=== PATIENT | male | born 2000 | race Caucasian/White ===

== ENCOUNTER 2024-11-25 18:35 | Emergency (ER) | payer SELFPAY ==
[2024-11-25 18:36] VITALS: BP 114/79; PULSE 103; RESP 24; TEMP 37; O2SAT 96
[2024-11-25 19:23] VITALS: PULSE 91; RESP 22; O2SAT 93
[2024-11-25 19:25] VITALS: PULSE 96; RESP 20; TEMP 36.6; O2SAT 96
--- NOTE | 2024-11-25 20:08 | W.ED.GENAD ---
Discharge Plan Disposition Patient Disposition: Home Condition: Good Discharge Details Clinical Impression: Asthma exacerbation Primary Care Provider: Umair Washington ED Provider: Supriya Sargent Home Meds and New Rx's Prescriptions: New prednisone 50 mg tablet 50 mg PO DAILY Qty: 5 0RF prednisone 50 mg tablet 50 mg PO DAILY Qty: 5 0RF prednisone 50 mg tablet 50 mg PO DAILY Qty: 5 0RF Continued albuterol 90 mcg/actuation aerosol 90 mcg inhalation .2 puff PRN fluticasone propionate [Flovent Diskus] 250 mcg/actuation blister with device 1 inh inhalation BID Discharge Instructions Instructions: Asthma, Adult ED Additional Instructions: Use your flovent and albuterol as prescribed. Prednisone once a day for the next 5 days. Call your primary care doctor in the morning to schedule an appointment for within the next 72 hours to followup on your visit here. Return to the emergency department for new or worsening symptoms including if your breathing worsens, you feel lightheaded, have chest pain, or any other concerns. Referrals: Umair Washington [Primary Care Provider] - [facility] General Mode of arrival: ambulatory. Date/Time Provider Initiated Documentation: 11/25/24 19:16. Limitations to Documentation: no limitations. Information obtained by: patient. HPI Narrative: 24yo M with hx asthma presenting for wheezing. Out of home albuterol and flovent. Recently moved in with family to help care for them, they have cats and since then he has noticed increase in need for albuterol. No fevers, chills, rash, nausea, vomiting, chest pain, palpitations, or other concerns. Related Data Home Medications ?Medication ?Instructions ?Recorded ?Confirmed albuterol 90 mcg/actuation aerosol 90 mcg inhalation .2 puff PRN 11/25/24 11/25/24 inhaler fluticasone propionate 250 1 inh inhalation BID 11/25/24 11/25/24 mcg/actuation blister powder for inhalation (Flovent Diskus) prednisone 50 mg tablet 50 mg PO DAILY #5 tabs 11/25/24 prednisone 50 mg tablet 50 mg PO DAILY #5 tabs 11/25/24 prednisone 50 mg tablet 50 mg PO DAILY #5 tabs 11/25/24 Previous Rx's ?Medication ?Instructions ?Recorded prednisone 50 mg tablet 50 mg PO DAILY #5 tabs 11/25/24 prednisone 50 mg tablet 50 mg PO DAILY #5 tabs 11/25/24 prednisone 50 mg tablet 50 mg PO DAILY #5 tabs 11/25/24 General Stated Complaint: RespSymp LINDY: 3 Review of Systems Narrative: see HPI Exam Narrative Exam Narrative: General: Alert, well appearing, well nourished, in no acute distress. Head: Normocephalic, atraumatic Neck: Trachea midline, ?Neck supple. Cardiac: ?RRR, no murmurs appreciated Resp: Diffuse expiratory wheeze. Good air movement. No increased work of breathing. Extremities: ?No deformities.? No peripheral edema. Neurologic: GCS 15. ? Moves all extremities freely against gravity Course Vital Signs Vital signs: Vital Signs Temperature 37.0 C 11/25/24 18:36 Pulse 103 H 11/25/24 18:36 Respiratory Rate 24 11/25/24 18:36 Blood Pressure 114/79 11/25/24 18:36 Pulse Oximetry 96 11/25/24 18:36 Temperature 36.6 C 11/25/24 19:25 Temperature Source Oral 11/25/24 18:36 Pulse 96 H 11/25/24 19:25 Respiratory Rate 20 11/25/24 19:25 Respiratory Effort Short of Breath 11/25/24 19:25 Respiratory Depth Normal 11/25/24 19:25 Blood Pressure 114/79 11/25/24 18:36 Blood Pressure Position Sitting 11/25/24 18:36 Pulse Oximetry 96 11/25/24 19:25 Oxygen Delivery Method Room Air 11/25/24 19:23 Oxygen Flow Rate 0 11/25/24 19:23 Pain Level 0 11/25/24 19:25 Medical Decision Making 24yo M with hx asthma presenting for wheezing, requests refills of meds as he is out of home albuterol and flovent. Slighty tachcyardiac on arrival after ambulating into triage; vital signs otherwise reassuring. No infectious symptoms. Systemically well. Well appearing on exam, no respiratory distress; does have expiratory wheeze. Not septic, not concerned for pneumonia; would not get labs or CXR. Given albuterol and mometasol here as well as dose of prednisone. On reassessment lungs CTAB, patient reports feeling better. He declines respiratory viral swab. Will discharge on 5 days course of prednisone; advised close PCP followup. Discharge instructions and return precautions were reviewed with patient who verbalized understanding. All questions were answered and he is in full agreement with the plan. Quality:SDOH Health Related Social Needs: No Data to Display PFSH All Active Problems (Updated 11/25/24 @ 20:32 by Supriya Sargent MD) Asthma exacerbation (Acute) Social History Smoking/Tobacco Use Status: Current every day Tobacco Type: cigarettes Smoking risk assessment performed?: Yes Alcohol Intake: never Substance use type: does not use
[2024-11-25] MEDS: Inhaler, Assist Device 1 EACH MC (20:34)
[2024-11-25] MEDS: Albuterol HFA 8 GM 60 PUFF INH IH (20:34)
[2024-11-25] MEDS: predniSONE 20 MG TAB 60 MG PO (20:35)
[2024-11-25] MEDS: Mometasone 220 MCG 14 DOSE INHALER 2 PUFF IH (21:08)
== END 2024-11-25 21:14 | disposition home or self-care (01) ==
PROVIDERS: Emergency Provider Student in an Organized Health Care Education/Training Program; PCP Hospitalist
DX: J45.901 Unspecified asthma with (acute) exacerbation (principal)
CPT/HCPCS: 99283; J7512

== ENCOUNTER 2025-02-09 19:36 | Emergency (ER) | payer OTHER, SELFPAY ==
[2025-02-09] VITALS (12 sets, daily range): BP systolic 100–105; BP diastolic 75–85; PULSE 86–133; RESP 16–18; TEMP 36.9; O2SAT 97–99
--- NOTE | 2025-02-09 19:30 | RT.EKG_ITS ---
APPROVED REPORT Exam: Resting ECG Reason for Exam: palpatations Patient Location: E HR:95 bpm ECG Measurements Heart Rate 95 AXIS TX 156 P 68 QRSd 100 QRS 66 QT 339 T 57 QTc 428 Conclusion Sinus rhythm 95 normal axis no stemi
[2025-02-09 20:59] LABS: Abs Immature Grans 0.02 10^3/uL (0.0-0.06); Absolute Basophil Count 0.07 10^3/uL (0.0-0.2); Absolute Eosinophil Count 1.08 10^3/uL (0.0-0.7); Absolute Lymphocyte Count 3.48 10^3/uL (1.2-3.4); Absolute Monocyte Count 0.89 10^3/uL (0.1-0.8); Absolute Neutrophil Count 6.63 10^3/uL (1.2-6.7); Basophils % 0.6 %; Eosinophils % 8.9 %; HCT 45.9 % (40.0-50.0); HGB 15.4 g/dL (13.5-17.5); Immature Grans % 0.2 %; Lymphocytes % 28.6 %; MCH 29.4 pg (27.0-33.0); MCHC 33.6 % (32.0-36.0); MCV 88 fL (80-95); MPV 10.1 fL (8.0-11.0); Monocytes % 7.3 %; Neutrophils % 54.4 %; Platelet Count 317 10^3/uL (130-400); RBC 5.24 10^6/uL (4.36-5.78); RDW 12.5 % (11.8-14.1); RDW-SD 39.8 fL; WBC 12.18 10^3/uL (4.4-10.8)
--- NOTE | 2025-02-09 21:10 | DI.RAD_ITS ---
Exam(s) XR CHEST 2V PA LATERAL EXAM: XR CHEST 2V PA LATERAL CLINICAL HISTORY: CHEST PAIN TECHNIQUE: 2D digital imaging was performed. Two views. COMPARISON: No exams were available for comparison FINDINGS: HEART: Normal size. Aorta: Not dilated. PULMONARY VASCULATURE: Normal. MEDIASTINUM: Unremarkable. LUNGS: Hyperinflated but clear. PLEURAL SPACE: No pleural effusion or pneumothorax. BONE:Unremarkable for age. SOFT TISSUES: Unremarkable. IMPRESSION: No acute abnormality. DATA REPOSITORY: RADIATION DOSE DELIVERED:
[2025-02-09 21:23] LABS: ALT 68 U/L (16-63); AST 46 U/L (15-37); Albumin 4.7 g/dL (3.4-5.0); Alkaline Phosphatase 108 U/L (46-116); Anion Gap 12.2 mmol/L (3-11); BUN 10 mg/dL (7-18); Bilirubin, Total 0.4 mg/dL (0.2-1.0); CO2 27.8 mmol/L (21.0-32.0); CREATININE 0.7 mg/dL (0.70-1.30); Calcium 10.2 mg/dL (8.5-10.1); Chloride 104 mmol/L (98-107); Estimated GFR 130.32 (mL/min/1.73m2); Glucose 113 mg/dL (74-106); Magnesium 1.9 mg/dL (1.8-2.4); NT-proBNP 30 pg/mL (<300); Potassium 3.4 mmol/L (3.5-5.1); Sodium 144 mmol/L (136-145); TSH (W/Ref FT4) 2.17 uIU/mL (0.36-3.74); Total Protein 8.8 g/dL (6.4-8.2); Troponin I < 4 ng/L (<or=76)
--- NOTE | 2025-02-09 21:54 | DI.VRAD_ITS ---
PROCEDURE INFORMATION: Exam: XR Chest Exam date and time: 02/09/2025 9:07 PM Age: 24 years old Clinical indication: Other: Chest pain TECHNIQUE: Imaging protocol: Radiologic exam of the chest. Views: 2 views. COMPARISON: No relevant prior studies available. FINDINGS: Lungs: The lungs are hyperaerated and hyperlucent. There is some flattening of the diaphragms and increased retrosternal airspace. Next lines Pleural spaces: Unremarkable. No pleural effusion. No pneumothorax. Heart/Mediastinum: Unremarkable. No cardiomegaly. Bones/joints: Unremarkable. IMPRESSION: COPD. No evidence for acute abnormality. Dictated and Authenticated by: Mariam Soler MD. Orderin Uma Obrien MD
--- NOTE | 2025-02-09 22:19 | ED.GENADUL_ITS ---
Discharge Plan Disposition Patient Disposition: Home Discharge Details Clinical Impression: Chest pain Primary Care Provider: Umair Washington ED Provider: Erika Eaton Home Meds and New Rx's Prescriptions: New prednisone 20 mg tablet 40 mg PO DAILY 4 Days Qty: 8 0RF No Action albuterol 90 mcg/actuation aerosol 90 mcg inhalation .2 puff PRN fluticasone propionate [Flovent Diskus] 250 mcg/actuation blister with device 1 inh inhalation BID Discharge Instructions Instructions: Chest Pain, Adult ED Additional Instructions: Your EKG and chest x-ray are unremarkable. Your blood work including your heart enzymes are not consistent with your chest pain being caused by your heart. Thyroid function testing is also normal. Prescription for steroid medication has been sent to the pharmacy. Please start this tomorrow to take for the next few days to help with your breathing symptoms. For your chest pain, start Motrin 600 mg every 6-8 hours. Please follow-up with your primary care provider as you should not be using your albuterol inhaler this often and you likely need adjustments in your controller medications. Please return to the emergency department with any other concerns. HPI General Date/Time Provider Initiated Documentation: 02/09/25 19:50 . Limitations to Documentation: no limitations . Information obtained by: patient . HPI Narrative: 24-year-old gentleman with past medical history of asthma presents for evaluation of chest pain. He reports that he lives with his girlfriend who has several cats and he has an allergy to cats and because of that he coughs quite a bit. He does not use anything other than the albuterol inhaler. He states he has been going through an inhaler a week. He reports this evening he developed some right-sided chest pain that was constant and sharp. No significant worsening shortness of breath, no fever or chills. Related Data Home Medications ?Medication ?Instructions ?Recorded ?Confirmed albuterol 90 mcg/actuation aerosol 90 mcg inhalation .2 puff PRN 11/25/24 02/09/25 inhaler fluticasone propionate 250 1 inh inhalation BID 11/25/24 02/09/25 mcg/actuation blister powder for inhalation (Flovent Diskus) prednisone 20 mg tablet 40 mg (2 x 20 mg) PO DAILY 4 days 02/09/25 #8 tabs Previous Rx's ?Medication ?Instructions ?Recorded prednisone 20 mg tablet 40 mg (2 x 20 mg) PO DAILY 4 days 02/09/25 #8 tabs Allergies Allergy/AdvReac Type Severity Reaction Status Date / Time No Known Allergies Allergy Verified 02/09/25 19:44 General Stated Complaint: Palpitatns LINDY: 3 Exam Narrative Exam Narrative: Review of Systems: All systems reviewed & are unremarkable except as noted in HPI and below Well-developed, no acute distress NCAT RRR, no murmur Unlabored respiratory effort, clear bilaterally Nondistended abdomen Extremities w/o edema Course Vital Signs Vital signs: Vital Signs Temperature 36.9 C 02/09/25 19:39 Pulse 93 H 02/09/25 19:39 Respiratory Rate 18 02/09/25 19:39 Blood Pressure 105/85 02/09/25 19:39 Pulse Oximetry 99 02/09/25 19:39 Temperature 36.9 C 02/09/25 19:39 Pulse 90 02/09/25 21:50 Pulse 106 H 02/09/25 21:20 Respiratory Rate 16 02/09/25 21:50 Blood Pressure 100/75 02/09/25 21:50 Pulse Oximetry 97 02/09/25 21:50 Oxygen Delivery Method Room Air 02/09/25 19:39 Oxygen Flow Rate 0 02/09/25 19:39 Pain Level 4 02/09/25 19:39 Lab/Test Results Lab/Test Results: Laboratory Tests Range/Units 02/09/25 20:50 WBC (4.4-10.8) 10^3/uL 12.18 H RBC (4.36-5.78) 10^6/uL 5.24 Hgb (13.5-17.5) g/dL 15.4 Hct (40.0-50.0) % 45.9 MCV (80-95) fL 88 MCH (27.0-33.0) pg 29.4 MCHC (32.0-36.0) % 33.6 RDW (11.8-14.1) % 12.5 Plt Count (130-400) 10^3/uL 317 MPV (8.0-11.0) fL 10.1 Immature Gran % % 0.2 Neutrophils % % 54.4 Lymphocytes % % 28.6 Monocytes % % 7.3 Eosinophils % % 8.9 Basophils % % 0.6 Nucleated RBC % (0.0-0.3) % 0.0 Absolute Neutrophils (1.2-6.7) 10^3/uL 6.63 Absolute Lymphocytes (1.2-3.4) 10^3/uL 3.48 H Absolute Monocytes (0.1-0.8) 10^3/uL 0.89 H Absolute Eosinophils (0.0-0.7) 10^3/uL 1.08 H Absolute Basophils (0.0-0.2) 10^3/uL 0.07 Sodium (136-145) mmol/L 144 Potassium (3.5-5.1) mmol/L 3.4 L Chloride (98-107) mmol/L 104 Carbon Dioxide (21.0-32.0) mmol/L 27.8 Anion Gap (3-11) mmol/L 12.2 H BUN (7-18) mg/dL 10 Creatinine (0.70-1.30) mg/dL 0.7 Est GFR (CKD-EPI 2020) (mL/min/1.73m2) 130.32 Glucose (74-106) mg/dL 113 H Calcium (8.5-10.1) mg/dL 10.2 H Magnesium (1.8-2.4) mg/dL 1.9 Total Bilirubin (0.2-1.0) mg/dL 0.4 AST (15-37) U/L 46 H ALT (16-63) U/L 68 H Alkaline Phosphatase (46-116) U/L 108 Troponin I (<or=76) ng/L < 4 NT-Pro-B Natriuret Pep (<300) pg/mL 30 Total Protein (6.4-8.2) g/dL 8.8 H Albumin (3.4-5.0) g/dL 4.7 TSH (0.36-3.74) uIU/mL 2.17 Medical Decision Making Emergent evaluation of chest pain. Patient has significant asthma history and sounds poorly controlled secondary to chronic environmental exposures. The patient is not wheezing at this time and has no signs of respiratory distress. EKG is unremarkable for any acute etiology or ischemic etiology. I doubt that he has ACS causing this chest pain. Other differentials include any pneumothorax, pneumonia. No focal consolidation, normal heart size, no pulmonary edema or pleural effusion did not reveal any acute etiology or consolidation. Lab work is unremarkable for any significant derangement. Troponin is undetectable. BNP is not elevated. I doubt cardiac etiology of the symptoms. Patient discharged with steroids for short course and recommended follow-up with his PCP as he needs significant change in his asthma controller plan. Quality:[facility] Health Related Social Needs: No Data to Display PFSH All Active Problems (Updated 02/09/25 @ 21:43 by Erika Eaton MD) Chest pain (Acute) Social History Smoking/Tobacco Use Status: Current every day Tobacco Type: cigarettes Smoking risk assessment performed?: Yes Alcohol Intake: never Substance use type: does not use
== END 2025-02-09 22:11 | disposition home or self-care (01) ==
PROVIDERS: Emergency Provider Emergency Medicine; PCP Hospitalist
DX: R07.9 Chest pain, unspecified (principal); Z87.09 Personal history of other diseases of the respiratory system
CPT/HCPCS: 99284 ×2; 36415; 80053; 93005; 71046; 83735; 83880; 84443; 84484; 85025; 93010

== ENCOUNTER 2025-03-02 | Emergency (ER) | payer OTHER, SELFPAY ==
[2025-03-01 23:52] VITALS: BP 136/99; PULSE 104; RESP 18; O2SAT 99
[2025-03-02] VITALS (57 sets, daily range): PULSE 60–106; RESP 11–28; O2SAT 97–100
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
[2025-03-02] MEDS: ACETAMINOPHEN 1,000 MG/100 ML BTL 400 MG IVPB (00:33)
[2025-03-02] MEDS: Diph,Pertuss(Acell),Tet Vac/Pf 0.5 ML SYR IM (00:34)
[2025-03-02] MEDS: Normal Saline 1,000 ML 1000 ML IV (00:34)
[2025-03-02 00:40] LABS: Abs Immature Grans 0.04 10^3/uL (0.0-0.06); Absolute Basophil Count 0.05 10^3/uL (0.0-0.2); Absolute Eosinophil Count 0.72 10^3/uL (0.0-0.7); Absolute Lymphocyte Count 2.32 10^3/uL (1.2-3.4); Absolute Monocyte Count 1.04 10^3/uL (0.1-0.8); Absolute Neutrophil Count 9.49 10^3/uL (1.2-6.7); Basophils % 0.4 %; Eosinophils % 5.3 %; HCT 38.3 % (40.0-50.0); HGB 12.8 g/dL (13.5-17.5); Immature Grans % 0.3 %; MCH 29.6 pg (27.0-33.0); MCHC 33.4 % (32.0-36.0); MCV 89 fL (80-95); MPV 9.9 fL (8.0-11.0); Monocytes % 7.6 %; Neutrophils % 69.4 %; Platelet Count 247 10^3/uL (130-400); RBC 4.33 10^6/uL (4.36-5.78); RDW 13.2 % (11.8-14.1); WBC 13.67 10^3/uL (4.4-10.8)
[2025-03-02 01:00] LABS: ALT 88 U/L (16-63); AST 68 U/L (15-37); Albumin 4.2 g/dL (3.4-5.0); Alkaline Phosphatase 88 U/L (46-116); Anion Gap 6.6 mmol/L (3-11); BUN 17 mg/dL (7-18); Bilirubin, Total 0.4 mg/dL (0.2-1.0); CO2 27.4 mmol/L (21.0-32.0); CREATININE 0.6 mg/dL (0.70-1.30); Calcium 9.6 mg/dL (8.5-10.1); Chloride 107 mmol/L (98-107); Estimated GFR 136.53 (mL/min/1.73m2); Glucose 90 mg/dL (74-106); Potassium 4.1 mmol/L (3.5-5.1); Sodium 141 mmol/L (136-145); Total Protein 7.6 g/dL (6.4-8.2)
[2025-03-02 01:09] LABS: ETHANOL BLOOD < 3.0 mg/dL (<10)
[2025-03-02] MEDS: Normal Saline - Diluent 50 ML VIAL IJ (01:39)
[2025-03-02] MEDS: Omnipaque 350 MG/ML 100 ML BTL IJ (01:39)
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
[2025-03-02 02:06] LABS: *AMPHETAMINES SCREEN URINE Negative (Negative); *BARBITURATES SCREEN URINE Negative (Negative); *BENZODIAZEPINES SCREEN URINE Negative (Negative); Cannabinoids THC Negative (Negative); Cocaine Screen,Urine Positive (Negative); METHADONE URINE SCREEN Negative (Negative); OPIATES URINE SCREEN Negative (Negative)
[2025-03-02 02:07] LABS: Tricyclic Antidepressants Negative (Negative)
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
--- NOTE | 2025-03-02 07:02 | NUR.NOTE ---
d/c BP noted after review to be erroneous, MD Justin aware and wrote note accordingly, aware that this RN was in chart to delete erroneous BP as pt did not have a BP of 54/25 at time of d/c.
== END 2025-03-02 03:13 | disposition home or self-care (01) ==
PROVIDERS: Emergency Provider Student in an Organized Health Care Education/Training Program; PCP Hospitalist
DX: S01.111A Laceration without foreign body of right eyelid and periocular area, initial encounter (principal); S00.01XA Abrasion of scalp, initial encounter; S00.03XA Contusion of scalp, initial encounter; S00.83XA Contusion of other part of head, initial encounter; S20.213A Contusion of bilateral front wall of thorax, initial encounter; Q78.0 Osteogenesis imperfecta; F17.210 Nicotine dependence, cigarettes, uncomplicated; Y04.0XXA Assault by unarmed brawl or fight, initial encounter; Y93.89 Activity, other specified; Z23 Encounter for immunization
CPT/HCPCS: 12011; 36415; 36569; 74177; 80053; 80307; 90715; 99285; 70450; 70486; 71260; 72125; 80320; 85025; J0131; J3490

== ENCOUNTER 2025-03-30 15:21 | Emergency (ER) | payer OTHER, SELFPAY ==
[2025-03-30 15:25] VITALS: BP 95/67; PULSE 134; RESP 20; TEMP 37.2; O2SAT 96
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
[2025-03-30] MEDS: predniSONE 20 MG TAB 60 MG PO (15:43)
[2025-03-30] MEDS: Albuterol/Ipratropium 3 ML UPD VIAL UPD (15:43)
[2025-03-30] MEDS: Albuterol HFA 8 GM 60 PUFF INH IH (15:43)
[2025-03-30] MEDS: Mometasone 220 MCG 14 DOSE INHALER 2 PUFF IH (16:12)
[2025-03-30 16:16] VITALS: PULSE 127; RESP 18; O2SAT 99
== END 2025-03-30 16:17 | disposition home or self-care (01) ==
LOC: ER 16:17
PROVIDERS: Emergency Provider Emergency Medicine; PCP Hospitalist
DX: J45.901 Unspecified asthma with (acute) exacerbation (principal); F17.210 Nicotine dependence, cigarettes, uncomplicated
CPT/HCPCS: 94640; 99283; J7512; J7620

== ENCOUNTER 2025-04-24 09:56 | Emergency (ER) | payer OTHER, SELFPAY ==
[2025-04-24 10:07] VITALS: BP 112/73; PULSE 80; RESP 20; TEMP 36.7; O2SAT 97
--- NOTE | 2025-04-24 10:29 | W.ED.GENAD ---
Discharge Plan Disposition Patient Disposition: Home Discharge Details Clinical Impression: Encounter for medication refill Primary Care Provider: Umair Washington ED Provider: Saurav Paez Home Meds and New Rx's Prescriptions: Continued albuterol 90 mcg/actuation aerosol 90 mcg inhalation .2 puff PRN fluticasone propionate [Flovent Diskus] 250 mcg/actuation blister with device 1 inh inhalation BID Discharge Instructions Additional Instructions: You are seen in the emergency department for your medication refill. You received an asthma inhaler. Please use this as directed. Please return to the emergency department if you develop shortness of breath chest pain or any increased wheezing. Otherwise please follow-up with your primary care provider. Discharge Data Discharge Date/Time-TO BE ENTERED AT DEPARTURE: 04/24/25 10:49 HPI General Date/Time Provider Initiated Documentation: 04/24/25 10:29. HPI Narrative: MDM This is a quite well-appearing normothermic and not tachycardic 24-year-old male without tachypneic nor hypoxic but with broken inhaler at home and history of reactive airway disease requesting medication refill for which patient received medications prior to discharge with an empiric trial of expectant outpatient management. Given his normal reassuring lung exam I did not feel he required a chest x-ray as he was not having any fevers nor cough to suggest pneumonia. No wheezes nor shortness of breath at the moment to suggest benefit from nebulization treatment. Given no significant wheezes will defer steroid treatment at this point in time. Equal breath sounds so I not suspicious for pneumothorax. No pain out of proportion to suggest necrotizing soft tissue infection. In the absence of chest pain I was not suspicious for ACS. No history of heart failure nor leg swelling to suggest acute CHF. Patient is not pale nor tachycardic so I am not suspicious for symptomatic anemia so I do not feel he requires CBC. Patient does have a primary care provider. We discussed that he should return to the emergency department if he developed any shortness of breath that worsened or if he had any fevers or chills or if he had any other concerns. He will follow-up with his primary care provider. HPI The patient presents for medication refill. He has a history of asthma since childhood, which is primarily triggered by cats. His asthma attacks are severe, often disrupting his sleep at night or early in the morning. He reports no current symptoms such as fever, productive cough, or chest pain. He recently quit smoking. He had an incident where his emergency inhaler malfunctioned due to heat exposure, but he managed to find a replacement. Currently, his breathing is stable. Patient has never been hospitalized as an adult for asthma. He has never required intubation. He had a remote history of hospitalization for asthma during childhood. He has a primary care provider. Exam General: Well-appearing in no acute distress speaking in complete sentences. Head: Normocephalic, atraumatic. Eye: Extraocular eye movements intact. No conjunctival injection. No scleral icterus. Ear, nose, mouth, throat: Grossly normal inspection. Normal voice, handling secretions normally. Neck: Trachea midline. Cardiovascular: Well-perfused distal extremities. Regular rate and rhythm Respiratory: Nonlabored respiration. Clear equal breath sounds. No wheezes. No rhonchi. Gastrointestinal: Nondistended abdomen. Musculoskeletal: No edema. Moving all 4 extremities spontaneously. Skin: Normal for age and race, grossly normal temperature and turgor. No acute rash. Neurologic: Alert and appropriate, no apparent acute deficits. Psychiatric: Mood and manner are appropriate. Grooming and personal hygiene are appropriate. Related Data Home Medications ?Medication ?Instructions ?Recorded ?Confirmed albuterol 90 mcg/actuation aerosol 90 mcg inhalation .2 puff PRN 11/25/24 03/30/25 inhaler fluticasone propionate 250 1 inh inhalation BID 11/25/24 03/30/25 mcg/actuation blister powder for inhalation (Flovent Diskus) Allergies Allergy/AdvReac Type Severity Reaction Status Date / Time No Known Allergies Allergy Verified 03/30/25 15:29 General Stated Complaint: RespSymp LINDY: 4 Course Vital Signs Vital signs: Vital Signs Temperature 36.7 C 04/24/25 10:07 Pulse 80 04/24/25 10:07 Respiratory Rate 20 04/24/25 10:07 Blood Pressure 112/73 04/24/25 10:07 Pulse Oximetry 97 04/24/25 10:07 Temperature 36.7 C 04/24/25 10:07 Temperature Source Oral 04/24/25 10:07 Pulse 80 04/24/25 10:07 Respiratory Rate 20 04/24/25 10:07 Blood Pressure 112/73 04/24/25 10:07 Blood Pressure Position Sitting 04/24/25 10:07 Pulse Oximetry 97 04/24/25 10:07 Oxygen Delivery Method Room Air 04/24/25 10:07 Oxygen Flow Rate 0 04/24/25 10:07 Pain Level 0 04/24/25 10:07 PFS All Active Problems (Updated 04/24/25 @ 10:30 by Saurav Paez MD) Encounter for medication refill (Acute) Asthma exacerbation (Acute) Social History Smoking/Tobacco Use Status: Current every day Tobacco Type: e-cigarettes Smoking risk assessment performed?: Yes Alcohol Intake: current Alcohol Intake frequency: a few times a month Alcohol type: beer Drug use: Never Substance use type: does not use Do you feel safe at home: Yes Do you feel safe in your relationship?: Yes
[2025-04-24] MEDS: Albuterol HFA 8 GM 60 PUFF INH IH (10:39)
[2025-04-24] MEDS: Budesonide/Formoterol 160/4.5 6 GM 60 PUFF INH IH (10:39)
[2025-04-24 10:49] VITALS: BP 112/73; PULSE 80; RESP 20; TEMP 36.7; O2SAT 97
== END 2025-04-24 10:49 | disposition home or self-care (01) ==
PROVIDERS: Emergency Provider Emergency Medicine; PCP Hospitalist
DX: Z76.0 Encounter for issue of repeat prescription (principal); J45.909 Unspecified asthma, uncomplicated; F17.290 Nicotine dependence, other tobacco product, uncomplicated
CPT/HCPCS: 99282

== ENCOUNTER 2025-06-22 22:10 | Emergency (ER) | payer SELFPAY ==
[2025-06-22 22:18] VITALS: BP 140/100; PULSE 100; RESP 16; TEMP 36.1; O2SAT 100
[2025-06-22 22:26] VITALS: RESP 16
--- NOTE | 2025-06-22 22:37 | W.ED.GENAD ---
Discharge Plan Disposition Patient Disposition: Home Condition: Good Discharge Details Clinical Impression: Viral URI Primary Care Provider: Umair Washington ED Provider: Harshad Justin Home Meds and New Rx's Prescriptions: No Action albuterol 90 mcg/actuation aerosol 90 mcg inhalation .2 puff PRN fluticasone propionate [Flovent Diskus] 250 mcg/actuation blister with device 1 inh inhalation BID Discharge Instructions Instructions: Upper Respiratory Infection ED Additional Instructions: At this time you do appear mildly dehydrated. Please drink plenty of fluid, at least 10 to 12 cups of water or electrolyte solution per day. You likely have a viral upper respiratory infection. We will call you with the results of the test. Please return to work once your symptoms have resolved. If you notice any worsening of your symptoms, or any new symptoms such as vomiting, diarrhea, fever, chills, shortness of breath, chest pain, numbness, weakness, or fainting , please return immediately to the emergency department for reevaluation. Please follow up with your primary care provider as soon as possible for reassessment and reevaluation. As always, it was a pleasure participating in your medical care today. Stand Alone Forms: Work Release Referrals: Umair Washington [Primary Care Provider, Medicine] [facility] General Date/Time Provider Initiated Documentation: 06/22/25 22:14. HPI Narrative: This is a 24-year-old male with a past medical history of osteogenesis imperfecta type I, osteoporosis, asthma, occasional hypotension, who presents today for evaluation for a work note and upper respiratory infection symptoms. Patient states that his girlfriend came back from [place] about 4 5 days ago, the next day after her return he developed a runny nose, congestion, mild head pressure chills nausea and diminished appetite. Symptoms have been improving over the last few days, currently he feels mildly weak but otherwise feels well. He has been able to eat and drink. No vomiting. No dysuria. No new cough. He states that he was going to going to work tomorrow but his employer requested a work note for the time that he was off and over the next day or so for medical clearance. He states that his employer requested COVID and flu testing. Patient has no complaint of neck stiffness. No other complaints at this time. Related Data Home Medications ?Medication ?Instructions ?Recorded ?Confirmed albuterol 90 mcg/actuation aerosol 90 mcg inhalation .2 puff PRN 11/25/24 06/22/25 inhaler fluticasone propionate 250 1 inh inhalation BID 11/25/24 06/22/25 mcg/actuation blister powder for inhalation (Flovent Diskus) Allergies Allergy/AdvReac Type Severity Reaction Status Date / Time No Known Allergies Allergy Verified 06/22/25 22:24 General Stated Complaint: GenMedical LINDY: 4 Exam Narrative Exam Narrative: 1.Const: Well-nourished, Well-developed, appearing stated age 2.Eyes: PERRL, no conjunctival injection, and symmetrical lids. 3.ENT: Atraumatic external nose and ears. Moist MM. Neck: Symmetric, trachea midline, No thyromegaly. No evidence of otitis media. No neck stiffness. 4.CVS: +S1/S2, Peripheral pulses 2+ and equal in all extremities. Brisk capillary refill in all extremities. 5.RESP: Unlabored respiratory effort. Clear to auscultation bilaterally. No wheezes rales or rhonchi 6.GI: Soft, Nontender/Nondistended, No hepatosplenomegaly. No guarding or rebound. 7.MSK: Normocephalic/Atraumatic, Extremities w/o deformity or ttp No cyanosis or clubbing, Normal movement of all extremities 8.Skin: Warm, Dry. No rashes or lesions. 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 Sensation grossly intact, no focal neurologic deficits. 10.Psych: (AAO) x3. Appropriate mood and affect Course Vital Signs Vital signs: Vital Signs Temperature 36.1 C L 06/22/25 22:18 Pulse 100 H 06/22/25 22:18 Respiratory Rate 16 06/22/25 22:18 Blood Pressure 140/100 H 06/22/25 22:18 Pulse Oximetry 100 06/22/25 22:18 Temperature 36.1 C L 06/22/25 22:18 Pulse 100 H 06/22/25 22:18 Respiratory Rate 16 06/22/25 22:26 Respiratory Effort Normal, Non-Labored 06/22/25 22:26 Respiratory Depth Normal 06/22/25 22:26 Respiratory Pattern Normal 06/22/25 22:26 Blood Pressure 140/100 H 09/07/25 22:18 Blood Pressure Position Sitting 06/22/25 22:18 Pulse Oximetry 100 06/22/25 22:18 Oxygen Delivery Method Room Air 06/22/25 22:18 Oxygen Flow Rate 0 06/22/25 22:18 Medical Decision Making This is a 24-year-old male with a past medical history of osteogenesis imperfecta type I, osteoporosis, asthma, occasional hypotension, who presents today for evaluation for a work note and upper respiratory infection symptoms. Patient states that his girlfriend came back from [place] about 4 5 days ago, the next day after her return he developed a runny nose, congestion, mild head pressure chills nausea and diminished appetite. Symptoms have been improving over the last few days, currently he feels mildly weak but otherwise feels well. He has been able to eat and drink. No vomiting. No dysuria. No new cough. He states that he was going to going to work tomorrow but his employer requested a work note for the time that he was off and over the next day or so for medical clearance. He states that his employer requested COVID and flu testing. Patient has no complaint of neck stiffness. No other complaints at this time. Exam demonstrates well-appearing male, mild tachycardia but afebrile. Slightly dry mucous membranes, no signs of meningitis otitis media or erythema in the posterior oropharynx. Patient shows no evidence to suggest meningitis. No evidence of pneumonia or hypoxemia. COVID flu and RSV test was performed. I did offer the patient an IV fluids for his mild dehydration, but he declined. Additionally patient declined to wait for test results, and requested that he be called if they were positive. Work note was given for the patient for his previous sick time. Otherwise patient appears hemodynamically stable. No sinus or frontal tenderness. No evidence to suggest significant sinusitis necessitating antibiotic treatment. Suspect viral etiology. COVID flu and RSV testing came back negative. I did contact the patient at his given cell phone number, but it went directly to voicemail and the voicemail was not set up. Patient otherwise stable. I have extensively reviewed the treatment plan and discharge instructions with the patient. I have addressed all patient concerns at this time. The patient was made aware of what symptoms to monitor for that would warrant a return to the emergency department. Discussed the plan with the patient, they demonstrate verbal understanding and agreement with our assessment and plan at this time. The documentation in this chart was dictated using Dragon dictation software. Please excuse any dictation errors. PFSH All Active Problems (Updated 06/22/25 @ 22:40 by Harshad Justin DO) Viral URI (Acute) Social History Smoking/Tobacco Use Status: Current every day Tobacco Type: e-cigarettes Smoking risk assessment performed?: Yes Alcohol Intake: current Alcohol Intake frequency: a few times a month Alcohol type: beer Drug use: Never Substance use type: does not use Do you feel safe at home: Yes Do you feel safe in your relationship?: Yes
[2025-06-22 23:11] LABS: COVID-19 PCR Negative (Negative); RSV PCR Negative (Negative)
== END 2025-06-22 22:41 | disposition home or self-care (01) ==
PROVIDERS: Emergency Provider Student in an Organized Health Care Education/Training Program; PCP Hospitalist
DX: J06.9 Acute upper respiratory infection, unspecified (principal)
CPT/HCPCS: 99283; 99282; 87637

== ENCOUNTER 2025-06-28 18:50 | Emergency (ER) | payer SELFPAY ==
[2025-06-28 18:58] VITALS: BP 106/73; PULSE 107; RESP 16; TEMP 36.6; O2SAT 98
[2025-06-28 19:00] VITALS: BP 106/73; PULSE 107; RESP 16; TEMP 36.6; O2SAT 98
--- NOTE | 2025-06-28 19:10 | W.ED.GENAD ---
Discharge Plan Disposition Patient Disposition: Home Condition: Stable Discharge Details Clinical Impression: Asthma exacerbation Primary Care Provider: Umair Washington ED Provider: Migel Suárez Home Meds and New Rx's Prescriptions: New prednisone 20 mg tablet 60 mg PO DAILY 4 Days Qty: 12 0RF Continued albuterol 90 mcg/actuation aerosol 90 mcg inhalation .2 puff PRN fluticasone propionate [Flovent Diskus] 250 mcg/actuation blister with device 1 inh inhalation BID Discharge Instructions Additional Instructions: Follow-up with your primary care provider if symptoms are continuing. If you feel more ill or have severe worsening shortness of breath return to the emergency department for reevaluation. HPI General Mode of arrival: ambulatory. Date/Time Provider Initiated Documentation: 06/28/25 19:01. Limitations to Documentation: no limitations. Information obtained by: patient. History of Present Illness 24 year old M presents to the emergency department with the chief complaint of out of albuterol, wheezing, described as mild, Patient started experiencing this day(s) (1) and it has been constant. No relieving factors improve symptom(s), No exacerbating factors reported . Patient notes no other symptoms.. Patient did receive the following treatments prior to arrival, none Related Data Home Medications ?Medication ?Instructions ?Recorded ?Confirmed albuterol 90 mcg/actuation aerosol 90 mcg inhalation .2 puff PRN 11/25/24 06/28/25 inhaler fluticasone propionate 250 1 inh inhalation BID 11/25/24 06/28/25 mcg/actuation blister powder for inhalation (Flovent Diskus) prednisone 20 mg tablet 60 mg (3 x 20 mg) PO DAILY 4 days 06/28/25 #12 tabs Previous Rx's ?Medication ?Instructions ?Recorded prednisone 20 mg tablet 60 mg (3 x 20 mg) PO DAILY 4 days 06/28/25 #12 tabs Allergies Allergy/AdvReac Type Severity Reaction Status Date / Time No Known Allergies Allergy Verified 06/22/25 22:24 General Stated Complaint: SOB LINDY: 4 Review of Systems All systems reviewed & are unremarkable except as noted in HPI and below Constitutional Constitutional: Denies chills, Denies fever(s) and Denies weakness Cardiovascular Cardiovascular: Denies chest pain and Reports dyspnea Respiratory Respiratory: Denies cough and Reports dyspnea Gastrointestinal Gastrointestinal: Denies abdominal pain, Denies nausea and Denies vomiting Neurologic Neurologic: Denies weakness Exam Const General: no acute distress Orientation: alert HENMT Head: normal to inspection Ears: external ears normal General nose exam: external nose normal Mouth: moist mucous membranes Eyes General: appearance normal, both eyes and all related structures Neck Neck: normal visual inspection Resp Effort & Inspection: normal respiratory effort and able to speak in complete sentences Auscultation: wheezes Cardio Rate: regular rate Skin General skin exam: no rashes or lesions noted Neuro General: patient alert and patient oriented x3 Extrem General: normal to inspection Psych Mental Status: mental status grossly normal Course Vital Signs Vital signs: Vital Signs Temperature 36.6 C 06/28/25 18:58 Pulse 107 H 06/28/25 18:58 Respiratory Rate 16 06/28/25 18:58 Blood Pressure 106/73 06/28/25 18:58 Pulse Oximetry 98 06/28/25 18:58 Temperature 36.6 C 06/28/25 19:00 Pulse 107 H 06/28/25 19:00 Respiratory Rate 16 06/28/25 19:00 Blood Pressure 106/73 06/28/25 19:00 Pulse Oximetry 98 06/28/25 19:00 Pain Level 0 06/28/25 19:00 Medical Decision Making 24-year-old male with a history of asthma comes in with request for refill of his albuterol inhaler. He says he is living in a house with a cat which normally sets of his asthma. He says that he has been using his albuterol inhaler more than usual and was unable to see his PCP for refill. He denies any chest pain, vomiting, diaphoresis, fevers. He is well-appearing speaking full sentences. He has no JVD, no leg swelling no calf tenderness. He has apical wheezing bilaterally otherwise clear lung sounds. I suspect asthma exacerbation. I offered to do a nebulizer treatment here but he declined. I did refill his albuterol inhaler and also give him a short course of prednisone. He will follow-up with his PCP and return precautions given. Differential Diagnosis Differential Diagnosis: asthma, uri PFSH All Active Problems (Updated 06/28/25 @ 19:11 by Migel Suárez MD) Asthma exacerbation (Acute) Viral URI (Acute) Social History Smoking/Tobacco Use Status: Current every day Tobacco Type: e-cigarettes Smoking risk assessment performed?: Yes Alcohol Intake: current Alcohol Intake frequency: a few times a month Alcohol type: beer Drug use: Never Substance use type: does not use Do you feel safe at home: Yes Do you feel safe in your relationship?: Yes
[2025-06-28] MEDS: Albuterol HFA 8 GM 60 PUFF INH IH (19:22)
[2025-06-28] MEDS: predniSONE 20 MG TAB 60 MG PO (19:22)
[2025-06-28 19:26] VITALS: RESP 16
== END 2025-06-28 19:29 | disposition home or self-care (01) ==
LOC: ER 19:12
PROVIDERS: Emergency Provider Emergency Medicine; PCP Hospitalist
DX: J45.901 Unspecified asthma with (acute) exacerbation (principal)
CPT/HCPCS: 99283; J7512

== ENCOUNTER 2025-07-20 12:47 | Emergency (ER) | payer SELFPAY ==
[2025-07-20 12:51] VITALS: BP 100/71; PULSE 83; RESP 24; TEMP 36.6; O2SAT 94
[2025-07-20 12:57] VITALS: PULSE 83; O2SAT 93
[2025-07-20] MEDS: Albuterol/Ipratropium 3 ML UPD VIAL UPD (12:57)
--- NOTE | 2025-07-20 12:58 | W.ED.GENAD ---
Discharge Plan Disposition Patient Disposition: Home Condition: Stable Discharge Details Clinical Impression: Asthma exacerbation Primary Care Provider: Umair Washington ED Provider: Migel Suárez Home Meds and New Rx's Prescriptions: New prednisone 20 mg tablet 60 mg PO DAILY 4 Days Qty: 12 0RF albuterol sulfate [Ventolin HFA] 90 mcg/actuation HFA aerosol inhaler 2 puff inhalation QID PRNQty: 8.5 3RF Continued albuterol 90 mcg/actuation aerosol 90 mcg inhalation .2 puff PRN fluticasone propionate [Flovent Diskus] 250 mcg/actuation blister with device 1 inh inhalation BID Discharge Instructions Additional Instructions: I have prescribed you prednisone and also sent a prescription for the inhaler with refills on it. Follow-up with either your primary care provider or an express care provider if not improving this week. If you feel more ill or more short of breath return to the emergency department for reevaluation. HPI General Mode of arrival: ambulatory. Date/Time Provider Initiated Documentation: 07/20/25 12:49. Limitations to Documentation: no limitations. Information obtained by: patient. History of Present Illness 24 year old M presents to the emergency department with the chief complaint of dyspnea, described as moderate, Patient started experiencing this day(s) (1) and it has been constant. Rest improves symptom(s), Movement worsens symptoms . Patient notes denies chest pain and cough. Patient did receive the following treatments prior to arrival, none Related Data Home Medications ?Medication ?Instructions ?Recorded ?Confirmed albuterol 90 mcg/actuation aerosol 90 mcg inhalation .2 puff PRN 11/25/24 07/20/25 inhaler fluticasone propionate 250 1 inh inhalation BID 11/25/24 07/20/25 mcg/actuation blister powder for inhalation (Flovent Diskus) albuterol sulfate 90 mcg/actuation 2 puff inhalation QID PRN #8.5 07/20/25 aerosol inhaler (Ventolin HFA) grams prednisone 20 mg tablet 60 mg (3 x 20 mg) PO DAILY 4 days 07/20/25 #12 tabs Previous Rx's ?Medication ?Instructions ?Recorded albuterol sulfate 90 mcg/actuation 2 puff inhalation QID PRN #8.5 07/20/25 aerosol inhaler (Ventolin HFA) grams prednisone 20 mg tablet 60 mg (3 x 20 mg) PO DAILY 4 days 07/20/25 #12 tabs Allergies Allergy/AdvReac Type Severity Reaction Status Date / Time No Known Allergies Allergy Verified 06/22/25 22:24 General Stated Complaint: RespSymp LINDY: 3 Review of Systems All systems reviewed & are unremarkable except as noted in HPI and below Constitutional Constitutional: Denies chills, Denies fever(s) and Denies weakness Cardiovascular Cardiovascular: Denies chest pain and Reports dyspnea Respiratory Respiratory: Reports cough and Reports dyspnea Gastrointestinal Gastrointestinal: Denies abdominal pain, Denies nausea and Denies vomiting Neurologic Neurologic: Denies weakness Exam Const General: no acute distress Orientation: alert HENMT Head: normal to inspection Ears: external ears normal General nose exam: external nose normal Mouth: moist mucous membranes Eyes General: appearance normal, both eyes and all related structures Neck Neck: normal visual inspection Resp Auscultation: wheezes Cardio Rate: regular rate Skin General skin exam: no rashes or lesions noted Neuro General: patient alert and patient oriented x3 Extrem General: normal to inspection Psych Mental Status: mental status grossly normal Course Vital Signs Vital signs: Vital Signs Temperature 36.6 C 07/20/25 12:51 Pulse 83 07/20/25 12:51 Respiratory Rate 24 07/20/25 12:51 Blood Pressure 100/71 07/20/25 12:51 Pulse Oximetry 94 07/20/25 12:51 Temperature 36.6 C 07/20/25 12:51 Temperature Source Temporal Artery Scan 07/20/25 12:51 Pulse 83 07/20/25 12:57 Respiratory Rate 24 07/20/25 12:51 Blood Pressure 100/71 07/20/25 12:51 Blood Pressure Position Sitting 07/20/25 12:51 Pulse Oximetry 93 07/20/25 12:57 Oxygen Delivery Method Room Air 07/20/25 12:57 Oxygen Flow Rate 0 07/20/25 12:57 Medical Decision Making 24-year-old male with a history of asthma comes in with 1 day of worsening shortness of breath and intermittent cough and states that he ran out of his albuterol inhaler. Denies any high fevers or chest pain. He was alert and oriented speaking in 4-5 word sentences on exam. He has diffuse wheezing bilaterally, no JVD or leg swelling. I recommended to admit nebulizer treatment but he requested inhaler instead. Will order prednisone inhaler and try to have him take the nebulizer as well as I suspect an asthma exacerbation and reassess. Patient to significantly better and is requesting discharge. Lung sounds improved and only has apical wheezing bilaterally. Will provide him with a new inhaler and he will follow-up with PCP or express care if not improving. Return precautions given Differential Diagnosis Differential Diagnosis: Asthma exacerbation, URI PFSH All Active Problems (Updated 07/20/25 @ 13:31 by Migel Suárez MD) Asthma exacerbation (Acute) Asthma exacerbation (Acute) Viral URI (Acute) Social History Smoking/Tobacco Use Status: Current every day Tobacco Type: e-cigarettes Smoking risk assessment performed?: Yes Alcohol Intake: current Alcohol Intake frequency: a few times a month Alcohol type: beer Drug use: Never Substance use type: does not use Do you feel safe at home: Yes Do you feel safe in your relationship?: Yes
[2025-07-20] MEDS: Albuterol HFA 8 GM 60 PUFF INH IH (13:00)
[2025-07-20 13:02] VITALS: BP 100/71; PULSE 83; RESP 24; TEMP 36.6; O2SAT 93
[2025-07-20] MEDS: predniSONE 20 MG TAB 60 MG PO (13:08)
== END 2025-07-20 13:35 | disposition home or self-care (01) ==
PROVIDERS: Emergency Provider Emergency Medicine; PCP Hospitalist
DX: J45.901 Unspecified asthma with (acute) exacerbation (principal)
CPT/HCPCS: 99283; 99284; 94640; J7512; J7620

== ENCOUNTER 2025-07-26 09:19 | Emergency (ER) | payer SELFPAY ==
[2025-07-26 09:25] VITALS: BP 118/82; PULSE 110; RESP 15; TEMP 36.9; O2SAT 94
[2025-07-26 09:27] VITALS: BP 118/82; PULSE 110; RESP 15; TEMP 36.9; O2SAT 94
[2025-07-26] MEDS: Budesonide/Formoterol 160/4.5 6 GM 60 PUFF INH IH (09:52)
--- NOTE | 2025-07-26 10:14 | W.ED.GENAD ---
Discharge Plan Discharge Details Chief Complaint: RespSymp Primary Care Provider: Umair Washington ED Provider: Saurav Paez Home Meds and New Rx's Prescriptions: No Action albuterol 90 mcg/actuation aerosol 90 mcg inhalation .2 puff PRN fluticasone propionate [Flovent Diskus] 250 mcg/actuation blister with device 1 inh inhalation BID albuterol sulfate [Ventolin HFA] 90 mcg/actuation HFA aerosol inhaler 2 puff inhalation QID PRNQty: 8.5 3RF HPI General Date/Time Provider Initiated Documentation: 07/26/25 09:35. HPI Narrative: This patient arrived to the emergency department during my shift. He reported needing a breathing treatment in setting of chest congestion. I previously saw him while he was being triaged by his nurse. He was breathing comfortably on room air with no accessory muscle use. No signs of any respiratory distress. He was handling his secretions. Unfortunately before I was able to see him he left the emergency department. I had given him a prescription for budesonide/formoterol. Related Data Home Medications ?Medication ?Instructions ?Recorded ?Confirmed albuterol 90 mcg/actuation aerosol 90 mcg inhalation .2 puff PRN 11/25/24 07/26/25 inhaler fluticasone propionate 250 1 inh inhalation BID 11/25/24 07/26/25 mcg/actuation blister powder for inhalation (Flovent Diskus) albuterol sulfate 90 mcg/actuation 2 puff inhalation QID PRN #8.5 07/20/25 07/26/25 aerosol inhaler (Ventolin HFA) grams Previous Rx's ?Medication ?Instructions ?Recorded albuterol sulfate 90 mcg/actuation 2 puff inhalation QID PRN #8.5 07/20/25 aerosol inhaler (Ventolin HFA) grams Allergies Allergy/AdvReac Type Severity Reaction Status Date / Time No Known Allergies Allergy Verified 07/26/25 09:28 General Stated Complaint: RespSymp LINDY: 4 Course Vital Signs Vital signs: Vital Signs Temperature 36.9 C 07/26/25 09:25 Pulse 110 H 07/26/25 09:25 Respiratory Rate 15 07/26/25 09:25 Blood Pressure 118/82 07/26/25 09:25 Pulse Oximetry 94 07/26/25 09:25 Temperature 36.9 C 07/26/25 09:27 Temperature Source Oral 07/26/25 09:27 Pulse 110 H 07/26/25 09:27 Respiratory Rate 15 07/26/25 09:27 Blood Pressure 118/82 07/26/25 09:27 Pulse Oximetry 94 07/26/25 09:27 Pain Level 0 07/26/25 09:27 PFSH All Active Problems (Updated 07/23/25 @ 00:04 by CHEYANNE WILLOUGHBY) Asthma exacerbation (Acute) Asthma exacerbation (Acute) Social History Smoking/Tobacco Use Status: Current every day Tobacco Type: e-cigarettes Smoking risk assessment performed?: Yes Alcohol Intake: current Alcohol Intake frequency: a few times a month Alcohol type: beer Drug use: Never Substance use type: does not use Do you feel safe at home: Yes Do you feel safe in your relationship?: Yes
== END 2025-07-26 10:03 | disposition left against medical advice (07) ==
PROVIDERS: Emergency Provider Emergency Medicine; PCP Hospitalist
DX: J45.901 Unspecified asthma with (acute) exacerbation (principal); Z53.21 Procedure and treatment not carried out due to patient leaving prior to being seen by health care provider

== ENCOUNTER 2025-09-04 02:31 | Emergency (ER) | payer SELFPAY ==
--- NOTE | 2025-09-04 | DI.RAD_ITS ---
Exam(s) XR CHEST 2V PA LATERAL EXAM: XR CHEST 2V PA LATERAL CLINICAL HISTORY: DOG BITE RT ANT CHEST TECHNIQUE: 2D digital imaging was performed. Two views. COMPARISON: No exams were available for comparison FINDINGS: HEART: Normal size. Aorta: Not dilated. PULMONARY VASCULATURE: Normal. MEDIASTINUM: Unremarkable. LUNGS: Hyperinflated but clear. PLEURAL SPACE: No pleural effusion or pneumothorax. BONE:Unremarkable for age. SOFT TISSUES: Unremarkable. IMPRESSION: No acute abnormality. The preliminary [facility] report was reviewed. DATA REPOSITORY: RADIATION DOSE DELIVERED:
--- NOTE | 2025-09-05 01:52 | W.ED.PROC ---
Date of service: 09/04/25 Time of Service: 02:30 Procedures Laceration Laceration 1: Site: chest Side (If applicable): right Size (cm): 3 Description: linear Depth: simple, single layer Local anesthetic: Lidocaine 2% and with Epi Amount of anesthesia used (mL): 7 Pre-repair: wound explored, irrigated extensively and deep structures intact Skin layer closed with: nylon Size (cm): 5-0 Number of sutures: 3 Technique: simple, interrupted (Wound initially gaping with increase in gaping with ROM of RUE; thoroughly irrigated and explored and very loosely approximated) Medical Decision Making Delayed documentation 2/t planned EMR downtime. Visit note in paper record.
== END 2025-09-04 05:01 | disposition home or self-care (01) ==
PROVIDERS: Emergency Provider Student in an Organized Health Care Education/Training Program; PCP Hospitalist
DX: S21.112A Laceration without foreign body of left front wall of thorax without penetration into thoracic cavity, initial encounter (principal); W54.0XXA Bitten by dog, initial encounter; Z23 Encounter for immunization
CPT/HCPCS: 99283; 99284; 90471; 12002; 71046; J2004

== ENCOUNTER 2025-09-17 17:53 | Observation (INO) | payer MEDICAID, SELFPAY ==
--- NOTE | 2025-09-17 00:08 | DI.CT_ITS ---
Exam(s) CT CHEST W EXAM: CT CHEST W CLINICAL HISTORY: dog bite to R chest with increasing WBC count. TECHNIQUE: Multi planar reconstructions were performed. CONTRAST MATERIAL: Omnipaque 350; 70 cc COMPARISON: CT CT CHEST/ABD/PEL W from 03/02/2025 FINDINGS: CHEST: ANTERIOR CHEST WALL: There is a small area of focal skin thickening in the anterior right chest above the nipple level, not associated with subcutaneous emphysema nor fluid collection nor radiopaque foreign body. There is no significant axillary adenopathy and no supraclavicular adenopathy. LUNGS: No lung contusion or pleural effusion. No pneumothorax. No incidental lung nodules. MEDIASTINUM: No evidence of sternal fracture or mediastinal hematoma. No incidental hilar nor mediastinal adenopathy.Thyroid gland appears unremarkable. CARDIAC: Heart size is normal. There is no pericardial effusion.Caliber of the thoracic aorta is within normal limits. No evidence of aortic dissection nor pericardial effusion. VISUALIZED UPPER ABDOMEN:No significant findings. OSSEOUS: No significant osseous lesions.. IMPRESSION: 1. Mild anterior right small findings above the nipple as described above. No subcutaneous air nor abscess nor radiopaque foreign body 2. No pulmonary findings nor incidental adenopathy. 3. No pleural effusions. Preliminary [facility] report was reviewed RADIATION DOSE DELIVERED: 76.32mGy.cm Total DLP DATA REPOSITORY: All CT scans at this facility are submitted to the National Radiology Data Registry (NRDR) Dose Index Registry (DIR) with the [employer] (A[employer]). RADIATION OPTIMIZATION: All CT scans at this facility use at least one of these dose optimization techniques: automated exposure control; mA and/or kV adjustment per patient size (includes targeted exams where dose is matched to clinical indication); or iterative reconstruction.
[2025-09-17 17:55] VITALS: BP 113/81; PULSE 94; RESP 16; TEMP 37.4; O2SAT 94
[2025-09-17] MEDS: Ondansetron O.D.T. 4 MG TABEF (19:27)
--- NOTE | 2025-09-17 19:38 | ED.GENADUL_ITS ---
Discharge Plan Disposition Patient Disposition: Admit to [facility] Condition: Improving Discharge Details Clinical Impression: Dog bite, Leukocytosis, Acidosis, lactic Primary Care Provider: Umair Washington ED Provider: Edith Dash Home Meds and New Rx's Prescriptions: No Action albuterol 90 mcg/actuation aerosol 90 mcg inhalation .2 puff PRN fluticasone propionate [Flovent Diskus] 250 mcg/actuation blister with device 1 inh inhalation BID albuterol sulfate [Ventolin HFA] 90 mcg/actuation HFA aerosol inhaler 2 puff inhalation QID PRNQty: 8.5 3RF HPI General Date/Time Provider Initiated Documentation: 09/17/25 18:45 . Limitations to Documentation: no limitations . Information obtained by: patient, family (signficant other) and RN notes reviewed . History of Present Illness 25 year old M presents to the emergency department with the chief complaint of nausea, vomiting, not feeling well, described as severe, Quality is described as other (nausea, vomiting, body aches, chills, diaphoresis), Patient started experiencing this day(s) and it has been constant. No relieving factors improve symptom(s), Other factors that worsen symptoms (associates with dog bite to chest) . Patient notes chest pain (pain at right upper chest wall from dog bite), cough (SO reports smokers cough, maybe slightly worse), diaphoresis, fever/chills, loss of appetite, malaise and nausea/vomiting; denies rash, shortness of breath and weakness. Patient did receive the following treatments prior to arrival, none Related Data Home Medications ?Medication ?Instructions ?Recorded ?Confirmed albuterol 90 mcg/actuation aerosol 90 mcg inhalation . 2 puff PRN 11/25/24 07/26/25 inhaler fluticasone propionate 250 1 inh inhalation BID 07/26/25 mcg/actuation blister powder for inhalation (Flovent Diskus) albuterol sulfate 90 mcg/actuation 2 puff inhalation Q ID PRN #8.5 07/20/25 07/26/25 aerosol inhaler (Ventolin HFA) grams Previous Rx's ?Medication ?Instructions ?Recorded albuterol sulfate 90 mcg/actuation 2 puff inhalation Q ID PRN #8.5 07/20/25 aerosol inhaler (Ventolin HFA) grams Allergies Allergy/AdvReac Type Severity Reaction Status Date / Time No Known Allergies Allergy Verified 07/26/25 09:28 General Stated Complaint: AnimalBite LINDY: 3 Review of Systems Constitutional Constitutional: Reports as per HPI and Denies headache(s) ENT Ears, Nose, Mouth, and Throat: Denies headache(s) Cardiovascular Cardiovascular: Reports as per HPI and Denies dyspnea Respiratory Respiratory: Reports as per HPI, Denies cough and Denies dyspnea Gastrointestinal Gastrointestinal: Reports as per HPI Genitourinary Genitourinary: Denies system reviewed and no additional complaints, except as documented (patient denies any change in urinary habits) Musculoskeletal Musculoskeletal: Reports as per HPI and Denies back pain Integumentary/Breasts Skin/Breast: Reports as per HPI and Denies rash Neurologic Neurologic: Reports as per HPI and Denies headache(s) Exam Const General: cooperative, well developed, anxious, disheveled, ill appearing acutely and other (dry heaving) Nutritional Appearance: average body habitus and well nourished Orientation: alert and awake [facility] Head: normal to inspection Mouth: mucous membranes dry (dry) Chest Chest: normal inspection of the chest, no crepitus and tenderness (over laceration) Chest/axillae images: 2 1. Area of dog bite. Wound is curvilinear, no surrounding erythema, warmth, drainage. No fluctuance. Wound edges are well-approximated, sutures have been removed. Resp Effort & Inspection: normal respiratory effort, able to speak in complete sentences and no respiratory distress Auscultation: clear to auscultation bilaterally, no rales, no rhonchi and no wheezes Cardio Rate: regular rate Rhythm: regular rhythm Heart Sounds: S1 normal and S2 normal GI Inspection: normal to inspection Palpation: soft, no hepatosplenomegaly and nontender Skin General skin exam: no rashes or lesions noted Trauma: no lacerations or abrasions Neuro General: patient alert and patient awake Cognition: normal cognition Speech: speech normal Gait: normal gait Course Vital Signs Vital signs: Vital Signs Temperature 37.4 C 09/17/25 17:55 Pulse 94 H 09/17/25 17:55 Respiratory Rate 16 09/17/25 17:55 Blood Pressure 113/81 09/17/25 17:55 Pulse Oximetry 94 09/17/25 17:55 Temperature 37.4 C 09/17/25 17:55 Temperature Source Oral 09/17/25 17:55 Pulse 94 H 09/17/25 17:55 Respiratory Rate 16 09/17/25 17:55 Blood Pressure 113/81 09/17/25 17:55 Blood Pressure Position Sitting 09/17/25 17:55 Pulse Oximetry 94 09/17/25 17:55 Oxygen Delivery Method Room Air 09/17/25 17:55 Oxygen Flow Rate 0 09/17/25 17:55 Medical Decision Making Patient is a 25-year-old gentleman brought in by his significant other with chief complaint of right upper chest wall pain and concern for infected wound. Patient was seen here on 09/04/2025 after he sustained a dog bite to the right upper chest. This was closed with simple interrupted sutures and patient was prescribed antibiotics. They report that he took 1 dose and then stop the antibiotics, did not corn picker the rest at the pharmacy. He reports that he has had pain intermittently but today the pain began to increase. His significant other is concerned that it may be becoming infected and she gave him an old dose of Augmentin which was notably on an empty stomach. Since then, his pains been increasing has been having nausea and vomiting. No shortness of breath. Has had a cough but significant other also reports that he has a baseline smoker's cough as well. Patient has been feeling cold, clammy and diaphoretic. Patient removed sutures himself. No significant drainage was reported from the wound. On exam, patient appears anxious, diaphoretic but does not appear acutely toxic or hemodynamically unstable. He does have an emesis bag. Wound itself is curvilinear and appears to be healing well on the right upper side of the chest with no surrounding erythema, warmth, drainage. No crepitus or fluctuance. He is moving air well in all of his lung diaz. This is likely associated with taking antibiotics in empty stomach more so than significant infection. However, I also considered other underlying etiologies such as pneumonia given the increase from his baseline cough as well as potentially splinting associated with the chest wall discomfort from the dog bite. Per significant other, dog was known to them, lives in the same house and is up-to-date on vaccines. Patient is also up-to-date on vaccines. Unclear exact etiology of the patient's current distress. He did take antibiotics on empty stomach which could contribute to this. He is diaphoretic however, considered infectious etiology, he reports that he did have a fever leading up to this. Patient also admits at a later time that he was not forthcoming with his significant other regarding the severity of his illness leading up to today. States that he has had some slight discomfort near the dog bite overall has been just feeling unwell. Nausea and vomiting did not begin till today. They do note that he had a small amount of discharge at the time that they removed the sutures a few days ago but no drainage since then. Clinically, I do not see indication to suggest focal infection from the dog bite, this appears to have healed well without complication. However, with the patient's diaphoresis, fever and general unwell considered more bacteremia associated with bite versus alternative source of infection. Will obtain baseline labs, give IV fluids as well as antiemetics. Considered retained FB Patient feeling improved after the antiemetics and IV fluids. Labs reviewed there is a concerning for a leukocytosis of 27, lactate of 2.7. Patient does have elevated LFTs but this appears to be fairly chronic. I am not another the patient's had any prior testing before hepatitis so we will add this on as well. With the patient's leukocytosis and lactic acidosis, this heightens my concern for bacteremia in the setting of recent dog bite. Again, I do not note evidence to suggest focal soft tissue infection but with his history, this is certainly the most likely source of infection. While he has significantly improved, I do feel that inpatient admission for continued IV antibiotics as well as IV hydration is appropriate. Patient and significant other deny any hx of IVDU. Consulted with hospitalist who request further imaging will consult with surgery as it is unclear the depth of the initial dog bite. Patient reports that the dog belongs to a family member as noted above, large dog that bit him when he attempted secondary to the dog. Will obtain CT imaging to evaluate for any soft tissue or deeper space infection associated with the trauma. Again, as there is no clinical evidence to suggest localized infection we will also obtain viral panel for further evaluation. Will begin patient on Unasyn for presumed dog bite bacteremia. Contacted by radiologist. No evidence to suggest soft tissue infection or deeper space infection associated with the bite. Discussed these findings with the patient. He continues to feel improved and is now tolerating some p.o. He is agreeable to inpatient admission and continued management of his acute infection. Consulted with hospitalsti who agrees to admission. PFSH All Active Problems (Updated 09/18/25 @ 01:49 by ELIEZER Magallanes) Acidosis, lactic (Acute) Leukocytosis (Acute) Dog bite (Acute) Social History Smoking/Tobacco Use Status: Current every day Tobacco Type: e-cigarettes Smoking risk assessment performed?: Yes Alcohol Intake: current Alcohol Intake frequency: a few times a month Alcohol type: beer Drug use: Never Substance use type: does not use Do you feel safe at home: Yes Do you feel safe in your relationship?: Yes
[2025-09-17] MEDS: Lactated Ringers 1,000 ML 1000 ML IV (21:00)
[2025-09-17 21:30] LABS: Abs Immature Grans 0.14 10^3/uL (0.0-0.06); HCT 51.7 % (40.0-50.0); HGB 17.0 g/dL (13.5-17.5); Immature Grans % 0.5 %; MCH 28.7 pg (27.0-33.0); MCHC 32.9 % (32.0-36.0); MCV 87 fL (80-95); MPV 10.0 fL (8.0-11.0); Platelet Count 326 10^3/uL (130-400); RBC 5.93 10^6/uL (4.36-5.78); RDW 13.3 % (11.8-14.1); RDW-SD 43.0 fL
--- NOTE | 2025-09-17 21:37 | DI.RAD_ITS ---
Exam(s) XR CHEST 2V PA LATERAL EXAM: XR CHEST 2V PA LATERAL CLINICAL HISTORY: right sided chest wall pain after dog bite. TECHNIQUE: 2D digital imaging was performed. COMPARISON: CR,XR XR CHEST 2V PA LATERAL from 09/04/2025 FINDINGS: 2 views: Heart size is normal. The mediastinum is not widened. Lungs are clear. No infiltrates nor pleural effusions. No obvious fractures. No pneumothorax. Thoracolumbar scoliosis is again noted. IMPRESSION: No acute pulmonary findings. Scoliosis again noted. DATA REPOSITORY: RADIATION DOSE DELIVERED:
[2025-09-17 21:44] LABS: RBC Morphology Normal; WBC 27.03 10^3/uL (4.4-10.8)
[2025-09-17 21:54] LABS: ALT 86 U/L (10-49); AST 73 U/L (<34); Albumin 5.8 g/dL (3.2-5.0); Alkaline Phosphatase 133 U/L (46-116); Anion Gap 12.2 mmol/L (3-11); BUN 14 mg/dL (9-23); Bilirubin, Total 0.60 mg/dL (0.2-1.2); CO2 24.8 mmol/L (20.0-31.0); Calcium 10.6 mg/dL (8.3-10.6); Chloride 105 mmol/L (98-107); Glucose 99 mg/dL (74-106); Potassium 4.0 mmol/L (3.5-5.1); Sodium 142 mmol/L (136-145); Total Protein 9.7 g/dL (5.7-8.2)
--- NOTE | 2025-09-17 22:07 | DI.[facility]AD_ITS ---
PROCEDURE INFORMATION: Exam: XR Chest Exam date and time: 09/17/2025 9:25 PM Age: 25 years old Clinical indication: Pain and injury or trauma; Right-sided; Injury date: 09/04/25; Right sided chest wall pain after dog bite TECHNIQUE: Imaging protocol: Radiologic exam of the chest. Views: 2 views. COMPARISON: CR XR CHEST 2V PA LATERAL 09/04/2025 3:16 AM FINDINGS: Lungs: No pulmonary consolidation is seen. Pleural spaces: No pleural effusion or pneumothorax is demonstrated. Heart/Mediastinum: The heart appears normal in size. Bones/joints: There is S-shaped spinal curvature. IMPRESSION: No active disease is seen in the chest. Dictated and Authenticated by: Tito Parker MD. Orderin Ekta Sharma MD
[2025-09-18] MEDS: AMPICILLIN/SULBACTAM 3 GM in Normal Saline 100 ML IVPB
[2025-09-18] MEDS: Normal Saline - Diluent 50 ML VIAL IJ (00:09)
[2025-09-18] MEDS: Omnipaque 350 MG/ML 100 ML BTL IJ (00:09)
[2025-09-18] MEDS: Normal Saline Flush 10 ML SYR IVP ×3 (00:10→09:18)
[2025-09-18] MEDS: Lactated Ringers 1,000 ML 1000 ML IV (00:10)
--- NOTE | 2025-09-18 00:27 | DI.VRAD_ITS ---
PROCEDURE INFORMATION: Exam: CT Chest With Contrast; Diagnostic Exam date and time: 09/17/2025 11:36 PM Age: 25 years old Clinical indication: Injury or trauma; Injury date: 09/04/25; Dog bite to R chest with increasing wbc count TECHNIQUE: Imaging protocol: Diagnostic computed tomography of the chest with contrast. 3D rendering (Not supervised by radiologist): MIP and/or 3D reconstructed images were created by the technologist. Radiation optimization: All CT scans at this facility use at least one of these dose optimization techniques: automated exposure control; mA and/or kV adjustment per patient size (includes targeted exams where dose is matched to clinical indication); or iterative reconstruction. Contrast material: [id number]; Contrast volume: 70 ml; Contrast route: INTRAVENOUS (IV); COMPARISON: CT CHEST/ABD/PEL W 03/02/2025 1:23 AM FINDINGS: Thyroid: Normal-sized thyroid gland. Lungs: No pulmonary consolidation. Pleural spaces: No pleural effusion or pneumothorax. Heart: Normal-sized heart. Lymph nodes: No pathologically enlarged mediastinal or hilar lymph nodes. Vasculature: No thoracic aortic aneurysm or dissection. No pulmonary embolism identified. This case was discussed personally with ELIEZER Dash at 12:24 AM EST on 09/18/2025. By report, the soft tissue wound is in the anterior right chest wall superior to the nipple. Bones/joints: Lower ribs partially excluded from view and incompletely evaluated. Otherwise, no acute fracture seen among the bones of the chest. Soft tissues: No gross soft tissue mass or fluid collection seen in the chest wall. IMPRESSION: 1. No acute visceral or bony injury seen in the chest. 2. Small region of focal skin thickening in the right anterior chest wall superior to the nipple on image 11 of series 2 in the expected location of the wound. No subcutaneous fluid collection, soft tissue gas, or foreign body seen in the chest wall. Dictated and Authenticated by: Tito Parker MD. Orderin Margoth Patricia MD
[2025-09-18 01:16] LABS: COVID-19 PCR Negative (Negative); RSV PCR Negative (Negative)
--- NOTE | 2025-09-18 01:55 | HPE_ITS ---
Date of service: 09/18/25 Time of Service: 01:56 Assessment and Plan Assessment and plan (1) Acidosis, lactic: Status: Acute Assessment and plan: Recheck lactate level in a.m. after hydration and ask (2) Leukocytosis: Status: Acute Assessment and plan: As above I have added Augmentin. Cultures are pending (3) Dog bite: Status: Acute Assessment and plan: As above the patient does not have any autoimmune or immunocompromise state. (4) Transaminitis: Status: Acute Assessment and plan: exact etiology is unknown. Hepatitis panel is pending History of Present Illness History of Present Illness Chief Complaint: n/v Narrative: This is a 25-year-old gentleman with no medical problems who approximately 10 days ago was actually bitten by his dog and this was on the 05 September and was seen in our ED. Unfortunately there is a procedure note but no other documentation on what happened at that time. Apparently he did have sutures placed but that is all I have no is in the chart. The patient states that he was bitten by his family dog who is a lap. Patient self removed the sutures. Today he started having some right sided chest pain and his significant other gave him some augmented but he took it on an empty stomach. After he took the Augmentin he had multiple episodes of nausea vomiting and diarrhea. Patient came into the ED for further evaluation and was noted to have significant elevation in his white count as well as elevations in his inflammatory markers. The concern was a deeper infection so CT scan was done which was negative. Chest x-ray was also done. Considering the elevation in his white count viral panel was also performed which was negative. The patient does have indolent transaminitis so hepatitis panel has also been ordered. Patient is willing to stay tonight. Blood cultures are pending patient was given Unasyn in the ED. On my interview with the patient he states he is feeling much better. [facility] All Active Problems (Updated 09/18/25 @ 02:01 by Hair Luz MD) Transaminitis (Acute) Acidosis, lactic (Acute) Leukocytosis (Acute) Dog bite (Acute) Social History Smoking/Tobacco Use Status: Current every day Tobacco Type: e-cigarettes Smoking risk assessment performed?: Yes Alcohol Intake: current Alcohol Intake frequency: a few times a month Alcohol type: beer Drug use: Never Substance use type: does not use Do you feel safe at home: Yes Do you feel safe in your relationship?: Yes Meds Allergies and Home Medications Allergies Allergy/AdvReac Type Severity Reaction Status Date / Time No Known Allergies Allergy Verified 07/26/25 09:28 Home Medications ?Medication ?Instructions ?Recorded ?Confirmed ?Type albuterol 90 mcg/actuation aerosol 90 mcg inhalation . 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 Neuro nonfocal No sign of infection in his chest wall Results Labs 09/17/25 21:15 09/17/25 21:15 Labs: Laboratory Results - last 24 hr 09/17/25 09/17/25 21:15 22:40 WBC 27.03 H* RBC 5.93 H Hgb 17.0 Hct 51.7 H MCV 87 MCH 28.7 MCHC 32.9 RDW 13.3 Plt Count 326 MPV 10.0 Immature Gran % 0.5 Neutrophils % 81.0 Lymphocytes % 6.8 Monocytes % 9.3 Eosinophils % 2.0 Basophils % 0.4 Nucleated RBC % 0.0 Absolute Neutrophils 21.89 H Absolute Lymphocytes 1.84 Absolute Monocytes 2.51 H Absolute Eosinophils 0.54 Absolute Basophils 0.11 RBC Morphology Normal VBG Lactate 2.7 H* Sodium 142 Potassium 4.0 Chloride 105 Carbon Dioxide 24.8 Anion Gap 12.2 H BUN 14 Creatinine 0.50 L Est GFR (CKD-EPI 2020) 199.30 Glucose 99 Calcium 10.6 Total Bilirubin 0.60 AST 73 H ALT 86 H Alkaline Phosphatase 133 H Total Protein 9.7 H Albumin 5.8 H COVID-19 Source Nasopharynx SARS-CoV-2 (PCR) Negative Influenza Type A (PCR) Negative Influenza Type B (PCR) Negative RSV (PCR) Negative Last Vital Signs Temp 37.4 C 09/17/25 17:55 Pulse 94 H 09/17/25 17:55 Resp 16 09/17/25 17:55 BP 113/81 09/17/25 17:55 Pulse Ox 94 09/17/25 17:55 VTE Prohylaxis Risk Level: Low Risk Contraindications: None Prophylaxis: Patient ambulatory Time Spent Time spent with Patient: 40-54 minutes Time was spent: preparing to see the patient(eg.review tests), obtaining and/or reviewing separately otained hiistory, ordering medications,tests, procedures, referring, communicating with other health healthcare network pricing consultant, indepentently interpreting results, counseling the patient and care coordination
[2025-09-18] MEDS: Albuterol HFA 8 GM 60 PUFF INH IH (03:09)
[2025-09-18 03:29] VITALS: BP 103/66; PULSE 78; RESP 17; TEMP 36.7; O2SAT 94
[2025-09-18] MEDS: Lactated Ringers 1,000 ML 125 ML IV (04:40)
--- NOTE | 2025-09-18 05:02 | W.PC.ACHO ---
Registration Status: ADM JUSTIN Primary Language: Preferred Language: ED Information & Data Chief Complaint AnimalBite 09/17/25 19:58 Triage Note Pt states that he was bit by 09/17/25 17:55 a dog two weeks ago. Didnt take the abx and states that he is having pain at the bite site. Bite site is near right armpit. Pt took his own stitches out and states that there was drainage a few days ago. Most Recent Vital Signs Temperature 36.7 C 09/18/25 03:29 Temperature Source Oral 09/17/25 17:55 Pulse 78 09/18/25 03:29 Pulse Rhythm Regular 09/18/25 03:29 Respiratory Rate 17 09/18/25 03:29 Respiratory Effort Normal 09/18/25 03:29 Respiratory Depth Normal 09/18/25 03:29 Respiratory Pattern Normal 09/18/25 03:29 Blood Pressure 103/66 09/18/25 03:29 Blood Pressure Position Sitting 09/17/25 17:55 Pulse Oximetry 94 09/18/25 03:29 Oxygen Delivery Method Room Air 09/18/25 03:29 Oxygen Flow Rate 0 09/18/25 03:29 Allergies No Known Allergies Allergy (Verified 07/26/25 09:28) Precautions Isolation Standard precaution 09/17/25 17:59 Active Medications Generic Name Dose Route Start Last Admin Trade Name Freq PRN Reason Stop Dose Admin Ringer's Solution 1,000 mls @ 125 mls/hr 09/18/25 02:00 09/18/25 04:40 IV 125 mls/hr INFUSION MICHELLE Administration Iohexol 100 ml 09/17/25 23:30 09/18/25 00:09 Omnipaque 350 Mg/Ml 100 Ml Btl IJ 10/17/25 23:59 70 ml DIRECTED MICHELLE Administration Sodium Chloride 0 ml 09/17/25 20:00 09/18/25 03:53 Normal Saline Flush 10 Ml Syr IVP 10 ml BID MICHELLE Administration Sodium Chloride 50 ml 09/17/25 23:30 09/18/25 00:09 Normal Saline - Diluent 50 Ml Vial IJ 50 ml DIRECTED MICHELLE Administration Sodium Chloride 0 ml 09/17/25 23:23 09/18/25 00:10 Normal Saline Flush 10 Ml Syr IVP 10 ml PRN PRN Administration IV IV Catheter Type [Left Hand] Peripheral IV IV Catheter Gauge [Left Hand] 20 Diet Orders Category Date Time Status Regular/Normal [DIET] Nutrition 09/18/25 Breakfast Active Diagnostics 09/18/25 09/18/25 09/17/25 Range/Units 05:35 01:00 22:40 WBC Pending (4.4-10.8) 10^3/uL RBC Pending (4.36-5.78) 10^6/uL Hgb Pending (13.5-17.5) g/dL Hct Pending (40.0-50.0) % MCV Pending (80-95) fL MCH Pending (27.0-33.0) pg MCHC Pending (32.0-36.0) % RDW Pending (11.8-14.1) % Plt Count Pending (130-400) 10^3/uL MPV Pending (8.0-11.0) fL Immature Gran % Pending % Neutrophils % Pending % Lymphocytes % Pending % Monocytes % Pending % Eosinophils % Pending % Basophils % Pending % Nucleated RBC % (0.0-0.3) % Absolute Neutrophils Pending (1.2-6.7) 10^3/uL Absolute Lymphocytes Pending (1.2-3.4) 10^3/uL Absolute Monocytes Pending (0.1-0.8) 10^3/uL Absolute Eosinophils Pending (0.0-0.7) 10^3/uL Absolute Basophils Pending (0.0-0.2) 10^3/uL RBC Morphology VBG Lactate (<or=2.0) mmol/L Sodium Pending (136-145) mmol/L Potassium Pending (3.5-5.1) mmol/L Chloride Pending (98-107) mmol/L Carbon Dioxide Pending (20.0-31.0) mmol/L Anion Gap Pending (3-11) mmol/L BUN Pending (9-23) mg/dL Creatinine Pending (0.73-1.18) mg/dL Est GFR (CKD-EPI 2020) Pending (mL/min/1.73m2) Glucose Pending (74-106) mg/dL Calcium Pending (8.3-10.6) mg/dL Total Bilirubin Pending (0.2-1.2) mg/dL AST Pending (<34) U/L ALT Pending (10-49) U/L Alkaline Phosphatase Pending (46-116) U/L Total Protein Pending (5.7-8.2) g/dL Albumin Pending (3.2-5.0) g/dL COVID-19 Source Nasopharynx SARS-CoV-2 (PCR) Negative (Negative) Hepatitis A IgM Ab Pending Hep Bs Antigen Pending Hep B Core Total Ab Pending Hepatitis C Antibody Pending Influenza Type A (PCR) Negative (Negative) Influenza Type B (PCR) Negative (Negative) RSV (PCR) Negative (Negative) 09/17/25 Range/Units 21:15 WBC 27.03 H* (4.4-10.8) 10^3/uL RBC 5.93 H (4.36-5.78) 10^6/uL Hgb 17.0 (13.5-17.5) g/dL Hct 51.7 H (40.0-50.0) % MCV 87 (80-95) fL MCH 28.7 (27.0-33.0) pg MCHC 32.9 (32.0-36.0) % RDW 13.3 (11.8-14.1) % Plt Count 326 (130-400) 10^3/uL MPV 10.0 (8.0-11.0) fL Immature Gran % 0.5 % Neutrophils % 81.0 % Lymphocytes % 6.8 % Monocytes % 9.3 % Eosinophils % 2.0 % Basophils % 0.4 % Nucleated RBC % 0.0 (0.0-0.3) % Absolute Neutrophils 21.89 H (1.2-6.7) 10^3/uL Absolute Lymphocytes 1.84 (1.2-3.4) 10^3/uL Absolute Monocytes 2.51 H (0.1-0.8) 10^3/uL Absolute Eosinophils 0.54 (0.0-0.7) 10^3/uL Absolute Basophils 0.11 (0.0-0.2) 10^3/uL RBC Morphology Normal VBG Lactate 2.7 H* (<or=2.0) mmol/L Sodium 142 (136-145) mmol/L Potassium 4.0 (3.5-5.1) mmol/L Chloride 105 (98-107) mmol/L Carbon Dioxide 24.8 (20.0-31.0) mmol/L Anion Gap 12.2 H (3-11) mmol/L BUN 14 (9-23) mg/dL Creatinine 0.50 L (0.73-1.18) mg/dL Est GFR (CKD-EPI 2020) 199.30 (mL/min/1.73m2) Glucose 99 (74-106) mg/dL Calcium 10.6 (8.3-10.6) mg/dL Total Bilirubin 0.60 (0.2-1.2) mg/dL AST 73 H (<34) U/L ALT 86 H (10-49) U/L Alkaline Phosphatase 133 H (46-116) U/L Total Protein 9.7 H (5.7-8.2) g/dL Albumin 5.8 H (3.2-5.0) g/dL COVID-19 Source SARS-CoV-2 (PCR) (Negative) Hepatitis A IgM Ab Hep Bs Antigen Hep B Core Total Ab Hepatitis C Antibody Influenza Type A (PCR) (Negative) Influenza Type B (PCR) (Negative) RSV (PCR) (Negative) 09/17/25 22:45 Blood Culture - Pending Blood 09/17/25 22:30 Blood Culture - Pending Blood Intake and Output - 24 Hour Total 09/17/25 17:53 thru 09/18/25 01:45 Intake Total 2100 Balance 2100 Weight 58.967 kg Intake: IV 2100 Falls Risk Assessment History of Falls No History 09/18/25 03:29 Contributing Factors No Factors 09/17/25 18:01 Ambulatory Aids Independent 09/18/25 03:29 Tubes/Lines None 09/17/25 18:01 Gait Evaluation No gait disturbance 09/17/25 18:01 Cognition No cognitive impairment 09/17/25 18:01 Fall Total Score 0 09/18/25 03:29 Level of Risk Standard/Low Risk 09/18/25 03:29 Problems Transaminitis (Acute) Acidosis, lactic (Acute) Leukocytosis (Acute) Dog bite (Acute) Attestation Statement: By documenting the first initial, last name, and credentials of the reporting nurse below, both parties acknowledge that all relevant information regarding the patient handoff has been communicated, and that all questions have been addressed to ensure continuity and safety of care. Additional Patient Information/Comments: Report Received From: LUCIA bill admitted for Leukocytosis, Lactic acidosis, had dog bite 10 days ago. Healing wound to Right upper chest from bite. AOX4, VSS on RA. IV LR @ 125 mL/hr. Independent. Care rounds maintained.
[2025-09-18 06:35] LABS: Abs Immature Grans 0.06 10^3/uL (0.0-0.06); HCT 39.9 % (40.0-50.0); HGB 13.2 g/dL (13.5-17.5); Immature Grans % 0.4 %; MCH 28.7 pg (27.0-33.0); MCHC 33.1 % (32.0-36.0); MCV 87 fL (80-95); MPV 10.1 fL (8.0-11.0); Platelet Count 266 10^3/uL (130-400); RBC 4.60 10^6/uL (4.36-5.78); RDW 13.6 % (11.8-14.1); RDW-SD 43.3 fL; WBC 13.39 10^3/uL (4.4-10.8)
[2025-09-18 07:13] LABS: ALT 59 U/L (10-49); AST 48 U/L (<34); Albumin 4.2 g/dL (3.2-5.0); Alkaline Phosphatase 96 U/L (46-116); Anion Gap 10.4 mmol/L (3-11); BUN 17 mg/dL (9-23); Bilirubin, Total 0.60 mg/dL (0.2-1.2); CO2 27.6 mmol/L (20.0-31.0); Calcium 9.2 mg/dL (8.3-10.6); Chloride 104 mmol/L (98-107); Glucose 118 mg/dL (74-106); Potassium 3.3 mmol/L (3.5-5.1); Sodium 142 mmol/L (136-145); Total Protein 6.8 g/dL (5.7-8.2)
[2025-09-18 07:48] VITALS: BP 91/51; PULSE 89; RESP 17; TEMP 36.7; O2SAT 97
--- NOTE | 2025-09-18 09:07 | W.PM.DS.N ---
Date of service: 09/18/25 Time of Service: 08:30 DS: Diagnosis Discharge Diagnosis (1) Cellulitis: Status: Acute Asessment and Plan: -new pain at site of dog bite, improved with abx -probable early cellulitis, will continue Augmentin x 7 days (2) Dog bite: Status: Acute Asessment and Plan: -probable early cellulitis; pt reports improved discomfort after abx -will continue Augmentin x 7 days, cautioned against taking on empty stomach, as this was likely cause of vomiting (3) Acidosis, lactic: Status: Acute Asessment and Plan: -resolved, AG closed (12.2 > 10.4) (4) Leukocytosis: Status: Acute Asessment and Plan: -improved (27.03 > 13.39), stress demargination vs early cellulitis (5) Transaminitis: Status: Acute Asessment and Plan: -chronic, recommend continued outpatient f/u Discharge Plan Disposition Patient Disposition: Home Condition: Good Discharge Details Reason For Visit: Leukocytosis Admit Date/Time: 09/18/25 01:51 Admit Provider: Hair Luz Attending Provider: Hair Luz Primary Care Provider: Umair [facility] Hospital Course Hospital Course: Coretta is a 25 y/o male who presented to ED for pain with inspiration to healing site of dog bite on R side of chest wall and acute onset of nausea/vomiting/chills after taking a dose of Augmentin on an empty stomach. Workup remarkable for leukocytosis, lactic acidosis, and chronic transaminitis. GI symptoms resolved after zofran and IV fluids. Pt admitted overnight for IV antibiotics for presumed cellulitis, today feels significantly improved with reduced pain to area of dog bite. WBC down from 27 to 13. Denies fever/chills, chest pain, shortness of breath, n/v/d, or general malaise. He feels well to go home on PO antibiotics (has been able to take PO without difficulty), will be prescribed PO Augmentin BID x 7 days and Zofran PRN. Blood cultures and hepatitis panel pending. We also discussed his transaminitis, which was present going back to 02/09/25 at least, which is our oldest lab. He denies alcohol use. Viral hepatitis panel was sent and is pending. His father has liver disease and he will find out about this. Thin habitus raises concern for muscular disease. CPK was added to labs. He will follow up with PCP at [facility]. Home Meds and New Rx's Prescriptions: New amoxicillin-pot clavulanate 875-125 mg Tablet 1 tab PO BID 7 Days Qty: 14 0RF budesonide-formoterol [Symbicort] 160-4.5 mcg/actuation Hfa Aerosol Inhaler 2 puff inhalation NOW Qty: 0 0RF ondansetron 4 mg tablet,disintegrating 4 mg PO Q8H PRNQty: 10 0RF Discontinued fluticasone propionate [Flovent Diskus] 250 mcg/actuation blister with device 1 inh inhalation BID No Action albuterol 90 mcg/actuation aerosol 90 mcg inhalation .2 puff PRN albuterol sulfate [Ventolin HFA] 90 mcg/actuation HFA aerosol inhaler 2 puff inhalation QID PRNQty: 8.5 3RF Discharge Instructions Additional Instructions: Please call your primary care provider this afternoon to schedule a follow up appointment. You are being prescribed an antibiotic to treat likely infection of your dog bite. Please take the full course as prescribed. Do not take on an empty stomach. You may take the zofran prescribed for severe nausea as needed. Your liver function tests were elevated. This appears to be unchanged from your baseline, however, this is something you should monitor with your primary care provider on an outpatient basis. A hepatitis panel is pending and should be available in a few days. Return to emergency care if you develop new fever/chills or redness/swelling/pain to your healing bite despite antibiotic treatment, as this may indicate need for different antibiotics. Stand Alone Forms: Portal Information, Nursing Discharge Form Referrals: Umair [facility] [Primary Care Provider, Medicine] Referral Note: Your PCP will reach out, if you do not hear from them please call. Activity:: Activity as Tolerated Equipment/Supplies:: No Equipment Needed Diet:: Normal Diet Discharge Orders Discharge Orders: Discharge Order (Routine); Ordered 09/18/25 Ordered By: Saurav Tamez Discharge Data Discharge Date/Time-TO BE ENTERED AT DEPARTURE: 09/18/25 10:33 DS: Summary Time Spent with Patient providing and/or coordinating discharge services: Greater than 30 minutes Status at Discharge Functional status at discharge: independent ambulation Overall status at discharge: patient is back to baseline Mental Status: mental status grossly normal Speech and Movement: speech and movement normal Mood: congruent mood Affect: normal affect Quality:SDOH Health Related Social Needs: Health related social needs risk of homeless house/econ circumstance lonely/isolated Health related social needs details Pt feels lonely at times. Health related social needs details: Pt feels lonely at times. Exam Narrative Exam Narrative: Gen: alert and oriented, NAD. Thin. no icterus. 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 Neuro nonfocal No redness/swelling/discharge around his chest wall wound, but mildly tender Const General: cooperative, healthy appearing, comfortable, no acute distress and well developed Nutritional Appearance: average body habitus and well nourished Orientation: alert, awake and oriented x3 HENMT Head: normal to inspection Ears: hearing grossly normal bilaterally General nose exam: external nose normal Face and sinus: normal facial exam Mouth: oral mucosae normal and moist mucous membranes (dry) Chest Chest: normal inspection of the chest, no crepitus and tenderness (over healing laceration) Resp Effort & Inspection: normal respiratory effort, able to speak in complete sentences and no respiratory distress Auscultation: clear to auscultation bilaterally, no rales, no rhonchi and no wheezes Cardio Rate: regular rate Rhythm: regular rhythm Heart Sounds: S1 normal and S2 normal GI Inspection: normal to inspection Palpation: soft, no hepatosplenomegaly, not firm, no guarding, no masses and nontender Skin General skin exam: no rashes or lesions noted Trauma: no lacerations or abrasions Full body images:  1. healed laceration, no surrounding erythema/warmth/edema or drainage Neuro General: patient alert, patient awake, patient oriented x3, tone normal and moves all extremities Cognition: normal cognition Speech: speech normal Gait: normal gait Extrem General: normal to inspection and full ROM Left upper extremity: normal to inspection and shoulder/upper arm Details: other (no lymphadenopathy); no tenderness and no swelling Psych Mental Status: mental status grossly normal Speech and Movement: speech and movement normal Mood: congruent mood Affect: normal affect DS: Data Vitals/I&O Vitals and I&O: Vital Signs Temperature 98.1 F 12/04/25 07:48 Temperature Source Temporal Artery Scan 09/18/25 07:48 Pulse 89 09/18/25 07:48 Pulse Rhythm Regular 09/18/25 03:29 Respiratory Rate 17 09/18/25 07:48 Respiratory Effort Normal 09/18/25 03:29 Respiratory Depth Normal 09/18/25 03:29 Respiratory Pattern Normal 09/18/25 03:29 Blood Pressure 91/51 L 09/18/25 07:48 Blood Pressure Mean 64 09/18/25 07:48 Blood Pressure Position Sitting 09/17/25 17:55 Pulse Oximetry 97 09/18/25 07:48 Oxygen Delivery Method Room Air 09/18/25 07:48 Oxygen Flow Rate 0 09/18/25 07:48 Intake & Output 09/17/25 09/17/25 09/18/25 11:59 23:59 11:59 Intake Total 1000 / 1000 1100 / 1100 Balance 1000 / 1000 1100 / 1100 Weight 130 lb 127 lb 13.89 oz Intake: IV 1000 / 1000 1100 / 1100 Data Completed and Pending Pending Labs at Discharge: 09/17/25 09/17/25 09/18/25 21:15 22:40 06:15 WBC 27.03 H* 13.39 H RBC 5.93 H 4.60 Hgb 17.0 13.2 L D Hct 51.7 H 39.9 L MCV 87 87 MCH 28.7 28.7 MCHC 32.9 33.1 RDW 13.3 13.6 Plt Count 326 266 MPV 10.0 10.1 Immature Gran % 0.5 0.4 Neutrophils % 81.0 69.4 Lymphocytes % 6.8 17.3 Monocytes % 9.3 8.4 Eosinophils % 2.0 4.1 Basophils % 0.4 0.4 Nucleated RBC % 0.0 0.0 Absolute Neutrophils 21.89 H 9.29 H Absolute Lymphocytes 1.84 2.32 Absolute Monocytes 2.51 H 1.12 H Absolute Eosinophils 0.54 0.55 Absolute Basophils 0.11 0.05 RBC Morphology Normal VBG Lactate 2.7 H* Sodium 142 142 Potassium 4.0 3.3 L Chloride 105 104 Carbon Dioxide 24.8 27.6 Anion Gap 12.2 H 10.4 BUN 14 17 Creatinine 0.50 L 0.47 L Est GFR (CKD-EPI 2020) 199.30 214.04 Glucose 99 118 H Calcium 10.6 9.2 Total Bilirubin 0.60 0.60 AST 73 H 48 H ALT 86 H 59 H Alkaline Phosphatase 133 H 96 Total Protein 9.7 H 6.8 Albumin 5.8 H 4.2 COVID-19 Source Nasopharynx SARS-CoV-2 (PCR) Negative Hepatitis A IgM Ab Pending Hep Bs Antigen Pending Hep B Core Total Ab Pending Hepatitis C Antibody Pending Influenza Type A (PCR) Negative Influenza Type B (PCR) Negative RSV (PCR) Negative Preliminary micro results at discharge 09/17/25 22:45 Blood Blood Culture - Pending 09/17/25 22:30 Blood Blood Culture - Pending [facility] All Active Problems (Updated 09/18/25 @ 09:16 by Leandra Sánchez) Cellulitis (Acute) Transaminitis (Acute) Acidosis, lactic (Acute) Leukocytosis (Acute) Dog bite (Acute) Social History Smoking/Tobacco Use Status: Current every day Tobacco Type: e-cigarettes Smoking risk assessment performed?: Yes Alcohol Intake: current Alcohol Intake frequency: a few times a month Alcohol type: beer Drug use: Never Substance use type: does not use Housing: other Do you feel safe at home: Yes Do you feel safe in your relationship?: Yes Time Spent with Patient Time Spent with Patient: <45 minutes Time was spent: preparing to see the patient(eg.review tests), obtaining and/or reviewing separately otained hiistory, ordering medications,tests, procedures, referring, communicating with other health urgent care technician, indepentently interpreting results, counseling the patient and care coordination
[2025-09-18] MEDS: Amoxicillin 875/Clav. 125 TAB PO (09:18)
--- NOTE | 2025-09-18 09:33 | PDOC.CMIN ---
Date of service: 09/18/25 Time of Service: 09:34 Care Management Initial Assmt Initial Assessment Reason for Hospitalization: leukocytosis Functional Status/Living Situation Town of Residence: [place] Resides with: Other (girlfriend) Employment Status: Employed Instrumental Activities of Daily Living (ADLs): Independent Medications Medication Management: No Issues/Barriers identified Advance Directives Advance Directives: Do you have an Advance Directive: N 11/25/24, 18:[address] [facility]: N 11/25/24, 18:39 Date Asked 09/17/25 12, 17:57 AD Date Reviewed COLST On File at [facility] No 11/25/24, 18:39 COLST Date Scanned Code Status Resuscitation Status Full Code Portal Pt does not currently have a portal and education provided: Yes Insurance Coverage/Financial Issues Insurance: self pay - referral made to [facility] Care Team Visit Care Team Role Provider Type Saurav Tamez MD [facility] STAFF PHYSICIAN Umair [place] Primary Care Provider NON-[facility] STAFF PHYSICIAN ELIEZER Magallanes Emergency Provider [employer] Hair Luz MD Admit Provider [facility] STAFF PHYSICIAN Attending Provider Discharge Potential Discharge Needs: PCP F/U Appt Anticipated Barriers to Discharge: None Identified Patient/Family Education Needs: Review discharge instructions, discuss Ask Me Three Transportation: Private vehicle Plan: Anticipate Coretta will be discharged home with no new services hen medically stable. He will follow up with his plan of care and transport with a friend. CM will follow. Social Determinants of Health Screening Social Determinants of health last assessed in clinic: 09/18/25 Will the Patient Participate in the Screening?: Yes Do you worry about having a steady place to live?: yes What is your living situation today?: I have housing today, but am worried about losing it Problems where you live: no known problems In the past 12 months, have you had to go without electric, gas, oil or water in your home?: no Has lack of transportation kept you from medical appointments or from doing things needed for daily living?: no Has anyone in your life made you feel unsafe or unsupported?: no How hard is it for you to pay for the very basics like food, housing, medical care, and heating? Would you say it is:: Somewhat hard Do you want help finding or keeping work or a job?: I do not need or want help If for any reason you need help with day-to-day activities such as bathing, preparing meals, shopping, managing finances, etc., do you get the help you need?: I don?t need any help How often do you feel lonely or isolated from those around you?: Often Do you speak a language other than [place] at home?: No Does the patient want assistance with any of the above?: No Health Related Social Needs Health related social needs: housing instability, housed, with risk of homelessness (Z59.811), problems related to housing/economic circumstances (Z59.89) and feeling lonely/isolated (Z60.8) Health related social needs details: Pt feels lonely at times. PFSH All Active Problems (Updated 09/18/25 @ 09:16 by Leandra Sánchez) Cellulitis (Acute) Transaminitis (Acute) Acidosis, lactic (Acute) Leukocytosis (Acute) Dog bite (Acute) Social History Smoking/Tobacco Use Status: Current every day Tobacco Type: e-cigarettes Smoking risk assessment performed?: Yes Alcohol Intake: current Alcohol Intake frequency: a few times a month Alcohol type: beer Drug use: Never Substance use type: does not use Housing: other Do you feel safe at home: Yes Do you feel safe in your relationship?: Yes
[2025-09-18] MEDS: Budesonide/Formoterol 160/4.5 6 GM 60 PUFF INH IH (10:29)
--- NOTE | 2025-09-18 13:33 | PDOC.CMPRO ---
Date of service: 09/18/25 Time of Service: 13:33 Care Management Progress Note Progress Note Text Progress Note Text: Coretta presented to the ED on 09/17/25 because of chest pain and nausea, vomiting and diarrhea. He had taken some Augmentin yesterday given to him by his girlfriend for a dog bite he sustained about 10 days earlier. He removed sutures himself and noticed the wound was more red and sore. In the ED he was found to have an elevated WBC and was admitted into observation status for IV antibiotics. By this morning he felt better and was discharged home. Coretta left before was able to see him.Information obtained from chart review, provider and staff. Discharge Potential Discharge Needs: PCP F/U Appt Anticipated Barriers to Discharge: None Identified Patient/Family Education Needs: Review discharge instructions, discuss Ask Me Three Transportation: Private vehicle Plan: Coretta will be discharged home with no new services. He will follow up with his PCP and plan of care and transport with a friend. Social Determinants of Health Screening Social Determinants of health last assessed in clinic: 09/18/25 Will the Patient Participate in the Screening?: Yes Do you worry about having a steady place to live?: yes What is your living situation today?: I have housing today, but am worried about losing it Problems where you live: no known problems In the past 12 months, have you had to go without electric, gas, oil or water in your home?: no 1. Within the past 12 months, we worried whether our food would run out before we got money to buy more.: Never true 2. Within the past 12 months, the food we bought just didn't last and we didn't have money to get more.: Never true Has lack of transportation kept you from medical appointments or from doing things needed for daily living?: no Has anyone in your life made you feel unsafe or unsupported?: no How hard is it for you to pay for the very basics like food, housing, medical care, and heating? Would you say it is:: Somewhat hard Do you want help finding or keeping work or a job?: I do not need or want help If for any reason you need help with day-to-day activities such as bathing, preparing meals, shopping, managing finances, etc., do you get the help you need?: I don?t need any help How often do you feel lonely or isolated from those around you?: Often Do you speak a language other than [place] at home?: No Does the patient want assistance with any of the above?: No Health Related Social Needs Health related social needs: housing instability, housed, with risk of homelessness (Z59.811), problems related to housing/economic circumstances (Z59.89) and feeling lonely/isolated (Z60.8) Health related social needs details: Pt feels lonely at times.
[2025-09-18 16:13] LABS: Lab Add On Test DONE
[2025-09-18 17:05] LABS: Creatine Kinase 1215 U/L (46-171)
[2025-09-18 19:15] LABS: Hepatitis A Antibody IgM Negative (Negative); Hepatitis C Ab w Rflx HCV PCR Negative (Negative)
== END 2025-09-18 10:33 | disposition home or self-care (01) ==
LOC: ER 09-18 02:14 → MS 09-18 03:25
PROVIDERS: Admitting Provider Hospitalist; Emergency Provider Physician Assistant; PCP Hospitalist; Responsible Provider Family Medicine; Visit Provider Hospitalist
DX: E87.20 Acidosis, unspecified (principal); S21.151A Open bite of right front wall of thorax without penetration into thoracic cavity, initial encounter; L03.313 Cellulitis of chest wall; D72.829 Elevated white blood cell count, unspecified; R74.01 Elevation of levels of liver transaminase levels; W54.0XXA Bitten by dog, initial encounter; Z79.899 Other long term (current) drug therapy; R11.2 Nausea with vomiting, unspecified; F17.290 Nicotine dependence, other tobacco product, uncomplicated; R19.7 Diarrhea, unspecified; Z59.811 Housing instability, housed, with risk of homelessness; Z60.8 Other problems related to social environment
CPT/HCPCS: 00123; 36415; 80053; 82550; 86704; 86709; 86803; 87040; 87340; 87637; 94640; 96361; 96365; 99285; 71046; 71260; 83605; 85025; 99236; G0378; J0295; J3490